=== PATIENT | male | born 1985 | race Caucasian/White ===

== ENCOUNTER → 2019-09-04 15:47 | Outpatient (POV) | payer OTHER, SELFPAY | PROVIDERS: Visit Provider Dermatology | DX: Z00.00 Encounter for general adult medical examination without abnormal findings (principal) ==

== ENCOUNTER 2025-03-15 20:58 | Emergency (ER) | payer BC, SELFPAY ==
--- OUTSIDE RECORDS SUMMARY | 2025-03-15 21:05 | XMS_ITS | Clinical Summary ---
Author Organization [facility] (Formerly [facility])[3] Address [address] [place] [address] Phone Care Team Providers Care Mid Level Practitioner Name Role Phone Lesia Carnes MD Conditions or Problems Problem Name Problem Code Onset Date Status Entry Date Provider Comment Standard Description Annotate HERNIATED LUMBAR DISC 421690744 (SNOMED CT) 04/06 Active 04/06 Adelina Pham Prolapsed lumbar intervertebral disc LUMBAR RADICULOPATHY 300997524 (SNOMED CT) 03/09 Active 03/09 Emmie Farah MA Lumbar radiculopathy Medications Medication Instructions Start Date Stop Date Generic Name [facility] Provider PERCOCET 5-325 MG TABS Take 1/2 - 1 tablet by mouth every four hours as needed for pain 0 8 oxycodone-acetaminop hen [id number] Chantal Tafoya MA TRAMADOL HCL 50 MG TABS Take 1 tablet by mouth three times a day for pain 0 8 tramadol [id number] Chantal Tafoya MA CYCLOBENZAPRINE HCL 5 MG TABS Take 1 PO q8h prn muscle spasms 0 8 cyclobenzaprine [id number] Chantal Tafoya MA IBUPROFEN 200 MG TABS 04/27 ibuprofen [id number] Chantal Tafoya MA CYCLOBENZAPRINE HCL 5 MG TABS Take 1 PO q8h prn muscle spasms 0 8 cyclobenzaprine [id number] Lesia Carnes MD PERCOCET 5-325 MG TABS Take 1/2 - 1 tablet by mouth every four hours as needed for pain 04/27 oxycodone-acetaminop [facility] [id number] Lesia Carnes MD TRAMADOL HCL 50 MG TABS Take 1 tablet by mouth three times a day for pain 04/27 tramadol [id number] Lesia Carnes MD TRAMADOL HCL 50 MG TABS Take 1 tablet by mouth three times a day 04/06 tramadol [id number] Chantal Zarateulicesjaya HERNANDEZ MEDROL 4 MG TBPK Take as directed, HOLD NSAIDs 04/06 methylprednisolone [id number] Chantal Zarateulicesjaya HERNANDEZ MEDROL 4 MG TBPK Take as directed, HOLD NSAIDs 04/06 methylprednisolone [id number] Nat Saldivar SALES ACTIVITY MANAGER RA VITAMIN C/BIJU HIPS 1000 MG TABS ascorbic acid (vitamin c) [id number] Emmie Farah FL IBUPROFEN 200 MG TABS 03/09 ibuprofen 26393649516 Emmie Farah FL IBUPROFEN 200 MG TABS 04/27 ibuprofen [id number] Emmie Farah FL Medications Administered No information available. Allergies, Adverse Reactions, Alerts Observed no known allergies at Results No information available. Plan of Care Type Date Detail Pending order PT Order Pending order RAMONA x 1 therapeu tic injection & follow up with ordering MD Pending order X-Ray Lumbar AP Lateral / Flexion & Extension Procedures No information available. Vital Signs Date Name Value Unit Description BMI (Body Mass Index) 22.38 kg/m2 Bod y Mass Index (Ratio) Height 72 [in_us] height E&M Weight Measured 165 [lb_av] weight E& M Weight Measured 165 [lb_av] weight E& M BP Diastolic 92 mm[Hg] blood pressu re, diastolic BP Systolic 146 mm[Hg] blood pressur e, systolic Body Temperature 98.2 [degF] temperat ure E&M Heart Rate 81 /min pulse rate Respiratory Rate 16 /min respirat ory rate E&M Immunizations No information available. Advance Directives No information available.
[2025-03-15 21:06] VITALS: BP 129/73; PULSE 86; RESP 18; TEMP 36.4; O2SAT 98; BMI 22.4
--- OUTSIDE RECORDS SUMMARY | 2025-03-15 21:06 | XMS_ITS | Clinical Summary ---
Author Organization [facility] [place] [address] Phone Care Team Providers Care Feather Drying Machine Operator Name Role Phone Unavailable Primary Care Provider Unavailabl e Allergies No known active allergies Medications No known medications Active Problems No known active problems Immunizations Immunization Administration Dates Next Due Tdap 11/22/2013 Surgical History Surgery Date Site/Laterality Comments DENTAL SURGERY wisdom teeth FRACTURE SURGERY right leg ANKLE FRACTURE SURGERY 10/20/2012 Right OPEN REDUCTION INTERNAL FIXATION RIGHT MEDIAL MALLEOLUS ; Surgeon: Shay Blue MD; Location: [facility]; Service: Orthopedics Medical devices from this surgery are in the Medical Devices section. Family History Medical History Relation Name Comments Anesth Problems Neg Hx Social History Tobacco Use Types Packs/Day Years Used Date Smoking Tobacco: Some Days Cigarettes 0.5 3 Comments:chew- occ Alcohol Use Standard Drinks/Week Comments Yes 0 (1 standard drink = 0.6 oz pur e alcohol) weekend Sex and Gender Information Value Date Recorded Sex Assigned at Not on file Legal Sex Male 5:16 AM EDT Gender Identity Not on file Sexual Orientation Not on file Obstetrics History Last Filed Vital Signs Vital Sign Reading Time Taken Comments Blood Pressure 126/71 10/20/2012 3:57 PM EST Pulse 67 10/20/2012 3:57 PM EST Temperature 36.7 C (98.1 F) 10/20/2012 3:41 PM EST Respiratory Rate 20 10/20/2012 3:57 PM EST Oxygen Saturation 100% 10/20/2012 3:57 PM EST Inhaled Oxygen Concentration - - Weight 71.7 kg (158 lb) 10/18/2012 2:45 PM EST Height 182.9 cm (6') 10/18/2012 2:45 PM EST Body Mass Index 21.43 10/18/2012 2:45 PM EST Plan of Treatment Health Maintenance Due Date Last Done Comments Annual Wellness Exam 12/09/1990 Hepatitis B Vaccine (1 of 3 - 19+ 3-dose series) 12/09/2006 DTaP/TDaP/Td (2 - Td or Tdap) 11/22/2023 11/22/2013 COVID-19 Vaccine (1 - 2023-2 5 season) 2024 Influenza Vaccine (Season Ended) 2025 Meningococcal B Vaccine Aged Out No l onger eligible based on patient's age to complete this topic Pneumococcal Vaccine 0-49 Aged Out No longer eligible based on patient's age to complete this topic Medical Devices Implanted Type Area Associate Professor Of Art Device Identifier Shelf Expiration Date Model / Serial / Lot Screw Cannulated Asnis Iii Ss 4 X 44mm - [id number] Implanted:Qty: 2 on 10/20/2012 by Shay Blue MD at [facility] Right: Ankle JACK:[employer] CS [id number] / / Insurance [employer]TER[employer]
[2025-03-15 21:30] VITALS: BP 136/83; PULSE 76; RESP 16; O2SAT 99
--- NOTE | 2025-03-15 21:49 | ED_ITS ---
Discharge Plan Disposition Patient Disposition: Home, Self-Care Condition: Good Referrals Follow up/Referrals: Provider,Referral, MD [Primary Care Provider, Medical] - See instructions Activity Restrictions/Add. Instructions Additional Instructions/Restrictions: You were evaluated in the emergency department today. You had a metallic foreign body removed from your right eye. You still have a residual rust ring, so it is important that you see an eye doctor over the next [address] Buchanan' office is open on Tuesday from 8am-12pm. If you do not follow-up for removal of the rust ring within 24 hours, it can cause chronic scarring in your vision. Please use the antibiotic ointment provided to you 4 times a day for the next 4 days or until directed otherwise by an eye doctor. If you have difficulty getting in or getting it managed there, I recommend seeking ER evaluation, preferably an ER with ophthalmology such as . Take Tylenol and ibuprofen as needed for pain. Return to the emergency department for new or worsening symptoms. Clinical Impressions Clinical Impression: Metal foreign body in eye region, Corneal rust ring of left eye Instructions Patient Instructions: DI for Foreign Body in the Eye Print Language Print Language: Swedish Discharge ED Provider: Sanjuanita Arredondo General Adult HPI General Chief complaint: Eye Problems Stated complaint: A/O 6-20 13:00 metal in left eye Time Seen by Provider: 03/15/25 21:23 Mode of Arrival: Ambulatory Source of Information: Patient Description of Symptoms (Recalled from ER Triage Doc. by RN): Pt states he has metal that in the underside of his left eyeball. Pt states this happened at home today around 1300. Pt states he is not in any severe pain, it just feels slightly uncomfortable and he was not able to get it out on his own at home History of Present Illness HPI narrative: This patient is a 39-year-old male who denies significant past medical history presenting to the emergency department for evaluation with concern for metallic foreign body in his left eye. Patient reports he was working with metal today around 1 PM when he noted he got a piece in his eye. He states that he can see it in the mirror so he tried to remove it at home with a Q-tip but was unable to get it. He denies any other concerns or complaint such as vision changes, significant pain, or other concerns. He is not a contact lens wearer. He notes he is up-to-date on tetanus shot with last 1 being within the last 3 years. Related Data Allergies Allergy/AdvReac Type Severity Reaction Status Date / Time No Known Allergies Allergy Unverified 09/13/17 15:26 [facility] Disclaimer: The information contained in this section may have been updated after the patient was seen, as this information can be updated by other users. Social History Smoking Status: Never smoker alcohol intake: never current occupational status: employed Travel in the last 8 weeks?: None ROS Obtained: Yes All systems reviewed & no additional complaints except as documented Physical Exam General General appearance: alert and in no apparent distress Head Head exam: atraumatic and normocephalic Eye Eye exam: Present PERRL and EOMI; Absent conjunctival injection, periorbital swelling or periorbital tenderness Expanded Eye Exam Both Eyes Image: 2 1. Small metallic foreign body ENT ENT exam: Present normal exam, normal oropharynx, mucous membranes moist and normal external ear exam Neck Neck exam: Present normal inspection, full ROM and trachea midline; Absent tenderness Chest Chest inspection: Present normal inspection and symmetric chest wall rise; Absent tenderness Respiratory Respiratory exam: Present normal lung sounds bilaterally; Absent respiratory distress, wheezes, stridor or accessory muscle use Cardiovascular Cardiovascular exam: Present regular rate and normal rhythm Abdominal Exam Abdominal exam: Present soft; Absent distention, tenderness or guarding Extremities Exam Extremities exam: Present normal inspection, full ROM and normal capillary refill; Absent tenderness or edema Back Exam Back exam: Present normal inspection and full ROM; Absent tenderness Neurological Exam Neurological exam: Present alert, oriented X3, CN II-XII intact and normal gait; Absent motor sensory deficit Psychiatric Psychiatric exam: Present normal affect and normal mood Skin Skin exam: Present warm and dry Medical Decision Making Medical Records Medical records reviewed: Yes I reviewed the patient's medical records. Screening: Per USPSTF and CDC recommendations, given the prevalence of disease in our region, it is our hospital?s policy to screen for HIV and viral Hepatitis for all patients aged 18 and over and those with ongoing risk factors. Sunil Inquiry Pt receiving controlled substance: No Vital Signs: 03/15/25 21:06 03/15/25 21:30 Temperature 97.5 F L Temperature Source Oral Pulse Rate 76 Pulse Rate [Left Radial] 86 Respiratory Rate 18 16 Blood Pressure 136/83 Blood Pressure [Left Arm] 129/73 Blood Pressure Mean [Left Arm] 91 Blood Pressure Source Automatic Cuff Blood Pressure Source [Left Arm] Automatic Cuff Blood Pressure Position [Left Arm] Sitting 02 Sat by Pulse Oximetry 98 99 Oxygen Delivery Method Room Air Room Air Lab Data Lab results reviewed: Yes I reviewed the patient's lab results. Orders (Tests/Meds): ED MEDICATIONS Generic Name Dose Route Start Last Admin Trade Name Matt PRN Reason Stop Dose Admin Eye Irrigation Solution 120 ml 03/15/25 22:04 Eye Wash Irrigation Soln 118ml Bottle OP 03/15/25 22:05 ONCE ONE Fluorescein Sodium 1 mg 03/15/25 22:04 Fluorescein Sodium 1mg Strip OP 03/15/25 22:05 ONCE ONE Neomycin/Polymyxin/Bacitracin 1 gm 03/15/25 22:04 Wepxaicd-Ueain-Msili Ophth Oint 3.5gm Tube OP 03/15/25 22:05 ONCE ONE Tetracaine HCl 0 ml 03/15/25 22:04 Tetracaine 0.5% Opth Ada 15ml OP 03/15/25 22:05 ONCE ONE ORDERS Category Date Time Status HIV Combo Routine Lab 03/15/25 21:12 Ordered Hepatitis C Ab Qual. W/ RFX Routine Lab 03/15/25 21:12 Ordered Medical Decision Narrative: In summary, this patient is a 39-year-old male presenting to the Emergency Department for evaluation of metallic foreign body in the left eye. Differential diagnoses considered include but are not limited to metallic foreign body, corneal abrasion, corneal ulceration, open globe. Ruling out the most morbid conditions drove assessment. On exam, the patient is well-appearing with metallic foreign body noted in the left eye. No pain with extraocular movements, vision is normal, no other concerns or complaints noted. Eye exam is otherwise within normal limits and is reassuring. He is up-to-date on vaccinations including tetanus. After informed consent was obtained, patient consents to attempted removal of the metallic foreign body with a needle. Prior to this, eye was anesthetized with tetracaine and fluorescein staining was performed to rule out globe injury or significant ulceration. Fluorescein staining is reassuring. Procedure: Informed consent was obtained. Patient's eye was anesthetized with topical tetracaine. Metallic foreign body was then removed from the eye with 1 attempt with an 18-gauge needle. Patient tolerated this well with no complication. He did have residual rust ring, which I attempted to remove with an 18-gauge needle as well as with a moist cotton swab, but I was unsuccessful. Ultimately after foreign body removal, I feel the patient is appropriate for discharge home with close ophthalmology follow-up. He was given antibiotic ointment and instructions for doing so. He was given very strict return precautions. He was discharged after all questions were answered. Critical Care Critical Care Time Critical Care Time: No
[2025-03-15] MEDS: EYE WASH IRRIGATION SOLN 118ML BOTTLE 120 ML OP (22:19)
[2025-03-15] MEDS: TETRACAINE 0.5% OPTH SOL 15ML OP (22:19)
[2025-03-15] MEDS: NEOMYCIN-BACIT-POLYM OPHTH OINT 3.5GM TUBE 1 GM OP (22:20)
[2025-03-15] MEDS: FLUORESCEIN SODIUM 1MG STRIP 1 MG OP (22:20)
[2025-03-15 22:23] VITALS: BP 129/83; PULSE 69; RESP 18; TEMP 36.7; O2SAT 96
== END 2025-03-15 22:23 | disposition home or self-care (01) ==
PROVIDERS: Emergency Provider Emergency Medicine
DX: T15.92XA Foreign body on external eye, part unspecified, left eye, initial encounter (principal); H16.022 Ring corneal ulcer, left eye; W44.E0XA Non-magnetic metal object unspecified, entering into or through a natural orifice, initial encounter
CPT/HCPCS: 65220; 99284

== ENCOUNTER 2025-09-24 18:20 | Emergency (ER) | payer BC, SELFPAY ==
[2025-09-24 18:42] VITALS: BP 138/81; PULSE 74; RESP 16; TEMP 36.5; O2SAT 98; BMI 21.9
--- OUTSIDE RECORDS SUMMARY | 2025-09-24 18:55 | XMS_ITS | Continuity of Care Document ---
Author Organization [facility] [place] [address] [place] [address] Assessment No assessment recorded. Plan of Treatment Reminders Order Date Submit Date Provider Last Modified By Organization Details Last Modified Time Details Appointments None record ed. Lab None record ed. Referral None record ed. Procedures None record ed. Surgeries None record ed. Imaging None record ed. Medication Orders None record ed. Patient TargetsNo targets recorded. Patient InstructionsNo instructions recorded. Reason for Referral None Reported. Results Created Date Observation Date Name Description Value Unit Range Abnormal Flag Note LastModifiedBy Organization Detail LastModifiedTime 07/08/2007/09/2025 CBC WITH DIFFE RENTI AL/PL ATELE T WBC 4.8 x10e3 /uL 3.4-10 .8 normal Not Available [facility] ([facility]) [address] [place], [address], 07/09/2025 08:26:20 07/08/2007/09/2025 CBC WITH DIFFE RENTI AL/PL ATELE T RBC 5.23 x10e6 /uL 4.14-5 .80 normal Not Available [facility] ([facility]) [address] [place], [address], 07/09/2025 08:26:20 07/08/20 25 07/09/2025 CBC WITH DIFFE RENTI AL/PL ATELE T hemoglobin 16.0 g/dL 13.0-1 7.7 normal Not Available [facility] ([facility]) [address] [place], [address], 07/09/2025 08:26:20 07/08/20 25 07/09/2025 CBC WITH DIFFE RENTI AL/PL ATELE T hematocrit 48.4 % 37.5-5 1.0 normal Not Available [facility] ([facility]) [address] [facility], [place], [address], 07/09/2025 08:26:20 07/08/2007/09/2025 CBC WITH DIFFE RENTI AL/PL ATELE T MCV 93 fL 79-97 normal Not Available [facility] ([facility]) [address] [facility], [place], [address], 07/09/2025 08:26:20 07/08/2007/09/2025 CBC WITH DIFFE RENTI AL/PL ATELE T MCH 30.6 pg 26.6-3 3.0 normal Not Available [facility] ([facility]) [address] [facility], [place], [address], 07/09/2025 08:26:20 07/08/2007/09/2025 CBC WITH DIFFE RENTI AL/PL ATELE T MCHC 33.1 g/dL 31.5-3 5.7 normal Not Available [facility] ([facility]) [address] [facility], [place], [address], 07/09/2025 08:26:20 07/08/2007/09/2025 CBC WITH DIFFE RENTI AL/PL ATELE T RDW 12.7 % 11.6-1 5.4 Not Available [facility] ([facility]) [address] [place], [address], 07/09/2025 08:26:20 07/08/2007/09/2025 CBC WITH DIFFE RENTI AL/PL ATELE T platelets 234 x10e3 /uL 150-45 0 normal Not Available [facility] ([facility]) [address] [place], [address], 07/09/2025 08:26:20 07/08/20 25 07/09/2025 CBC WITH DIFFE RENTI AL/PL ATELE T neutrophils 58 % not estab. normal Not Available [facility] ([facility]) [address] [facility], [place], [address], 07/09/2025 08:26:20 07/08/20 25 07/09/2025 CBC WITH DIFFE RENTI AL/PL ATELE T lymphs 31 % not estab. normal Not Available [facility] ([facility]) [address] [facility], [place], [address], 07/09/2025 08:26:20 07/08/2007/09/2025 CBC WITH DIFFE RENTI AL/PL ATELE T monocytes 7 % not estab. normal Not Available [facility] ([facility]) [address] [facility], [place], [address], 07/09/2025 08:26:20 07/08/20 25 07/09/2025 CBC WITH DIFFE RENTI AL/PL ATELE T eos 3 % not estab. normal Not Available [facility] ([facility]) [address] [facility], [place], [address], 07/09/2025 08:26:20 07/08/20 25 07/09/2025 CBC WITH DIFFE RENTI AL/PL ATELE T basos 1 % not estab. normal Not Available [facility] ([facility]) [address] [facility], [place], [address], 07/09/2025 08:26:20 07/08/2007/09/2025 CBC WITH DIFFE RENTI AL/PL ATELE T immature cells HELP DESK INTERNSHIP Not Available [facility] ([facility]) [address] [facility], [place], [address], 07/09/2025 08:26:20 07/08/20 25 07/09/2025 CBC WITH DIFFE RENTI AL/PL ATELE T neutrophils (absolute) 2.8 x10e3 /uL 1.4-7. 0 normal Not Available [facility] ([facility]) [address] [facility], [place], [address], 07/09/2025 08:26:20 07/08/2007/09/2025 CBC WITH DIFFE RENTI AL/PL ATELE T lymphs (absolute) 1.5 x10e3 /uL 0.7-3. 1 normal Not Available [facility] ([facility]) [address] [facility], [place], [address], 07/09/2025 08:26:20 07/08/2007/09/2025 CBC WITH DIFFE RENTI AL/PL ATELE T monocytes(ab solute) 0.3 x10e3 /uL 0.1-0. 9 normal Not Available [facility] ([facility]) [address] [facility], [place], [address], 07/09/2025 08:26:20 07/08/2007/09/2025 CBC WITH DIFFE RENTI AL/PL ATELE T eos (absolute) 0.2 x10e3 /uL 0.0-0. 4 normal Not Available [facility] ([facility]) [address] [facility], [place], [address], 07/09/2025 08:26:20 07/08/2007/09/2025 CBC WITH DIFFE RENTI AL/PL ATELE T baso (absolute) 0.1 x10e3 /uL 0.0-0. 2 normal Not Available [facility] ([facility]) [address] [place], [address], 07/09/2025 08:26:20 07/08/2007/09/2025 CBC WITH DIFFE RENTI AL/PL ATELE T immature granulocytes 0 % not estab. Not Available [facility] ([facility]) [address] [facility], [place], [address], 07/09/2025 08:26:20 07/08/20 25 07/09/2025 CBC WITH DIFFE RENTI AL/PL ATELE T immature grans (abs) 0.0 x10e3 /uL 0.0-0. 1 Not Available [facility] ([facility]) [address] [facility], [place], [address], 07/09/2025 08:26:20 07/08/20 25 07/09/2025 CBC WITH DIFFE RENTI AL/PL ATELE T NRBC HEL[employer] Not Available [facility] ([facility]) [address] [facility], [place], [address], 07/09/2025 08:26:20 07/08/2007/09/2025 CBC WITH DIFFE RENTI AL/PL ATELE T hematology comments: HEL[employer] Not Available [facility] ([facility]) [address] [facility], [place], [address], 07/09/2025 08:26:20 07/08/2007/09/2025 COMP. METAB OLIC PANEL (14) glucose 87 mg/dL 70-99 normal Not Available [facility] ([facility]) [address] [facility], [place], [address], 07/09/2025 08:26:21 07/08/20 25 07/09/2025 COMP. METAB OLIC PANEL (14) BUN 18 mg/dL 6-20 normal Not Available [facility] ([facility]) [address] [facility], [place], [address], 07/09/2025 08:26:21 07/08/20 25 07/09/2025 COMP. METAB OLIC PANEL (14) creatinine 1.02 mg/dL 0.76-1 .27 normal Not Available [facility] ([facility]) [address] [place], [address], 07/09/2025 08:26:21 07/08/20 25 07/09/2025 COMP. METAB OLIC PANEL (14) eGFR 97 mL/mi n/1.7 3 >59 normal Not Available [facility] ([facility]) [address] [facility] [place], [address], 07/09/2025 08:26:21 07/08/20 25 07/09/2025 COMP. METAB OLIC PANEL (14) BUN/creatini ne ratio 18 9-20 normal Not Available [facility] ([facility]) [address] [facility] [place], [address], 07/09/2025 08:26:21 07/08/20 25 07/09/2025 COMP. METAB OLIC PANEL (14) sodium 141 mmol/ L 134-14 4 normal Not Available [facility] ([facility]) [address] [facility] [place], [address], 07/09/2025 08:26:21 07/08/20 25 07/09/2025 COMP. METAB OLIC PANEL (14) potassium 5.3 mmol/ L 3.5-5. 2 above high normal Not Available [facility] ([facility]) [address] [facility] [place], [address], 07/09/2025 08:26:21 07/08/20 25 07/09/2025 COMP. METAB OLIC PANEL (14) chloride 105 mmol/ L 96-106 normal Not Available [facility] ([facility]) [address] [facility] [place] [place], [address], 07/09/2025 08:26:21 07/08/20 25 07/09/2025 COMP. METAB OLIC PANEL (14) carbon dioxide, total 23 mmol/ L 20-29 normal Not Available [facility] ([facility]) [address] [facility] [place], [address], 07/09/2025 08:26:21 07/08/20 25 07/09/2025 COMP. METAB OLIC PANEL (14) calcium 9.5 mg/dL 8.7-10 .2 normal Not Available [facility] ([facility]) [address] [place], [address], 07/09/2025 08:26:21 07/08/2007/09/2025 COMP. METAB OLIC PANEL (14) protein, total 6.9 g/dL 6.0-8. 5 normal Not Available [facility] ([facility]) [address] [facility], [place], [address], 07/09/2025 08:26:21 07/08/2007/09/2025 COMP. METAB OLIC PANEL (14) albumin 4.7 g/dL 4.1-5. 1 normal Not Available [facility] ([facility]) [address] [facility] [place], [address], 07/09/2025 08:26:21 07/08/20 25 07/09/2025 COMP. METAB OLIC PANEL (14) globulin, total 2.2 g/dL 1.5-4. 5 Not Available [facility] ([facility]) [address] [facility] [place], [address], 07/09/2025 08:26:21 07/08/2007/09/2025 COMP. METAB OLIC PANEL (14) bilirubin, total 0.6 mg/dL 0.0-1. 2 normal Not Available [facility] ([facility]) [address] [facility], [place], [address], 07/09/2025 08:26:21 07/08/2007/09/2025 COMP. METAB OLIC PANEL (14) alkaline phosphatase 81 IU/L 47-123 normal Not Available [facility] ([facility]) [address] [facility] [place], [address], 07/09/2025 08:26:21 07/08/20 25 07/09/2025 COMP. METAB OLIC PANEL (14) AST (SGOT) 17 IU/L 0-40 normal Not Available [facility] ([facility]) [address] [facility], [place], [address], 07/09/2025 08:26:21 07/08/20 25 07/09/2025 COMP. METAB OLIC PANEL (14) ALT (SGPT) 19 IU/L 0-44 normal Not Available [facility] ([facility]) [address] [facility] [place], [address], 07/09/2025 08:26:21 07/08/20 25 07/09/2025 LIPID PANEL cholesterol, total 191 mg/dL 100-19 9 normal Not Available [facility] ([facility]) [address] [place], [address], 07/09/2025 08:26:21 07/08/20 25 07/09/2025 LIPID PANEL triglyceride s 59 mg/dL 0-149 normal Not Available [facility] ([facility]) [address] [place], [address], 07/09/2025 08:26:21 07/08/20 25 07/09/2025 LIPID PANEL HDL cholesterol 72 mg/dL >39 normal Not Available [facility] ([facility]) [address] [place], [address], 07/09/2025 08:26:21 07/08/20 25 07/09/2025 LIPID PANEL VLDL cholesterol ainsley 11 mg/dL 5-40 Not Available [facility] ([facility]) [address] [place], [address], 07/09/2025 08:26:21 07/08/20 25 07/09/2025 LIPID PANEL LDL chol calc ([facility]) 108 mg/dL 0-99 above high normal Not Available [facility] ([facility]) [address] [place], [address], 07/09/2025 08:26:21 07/08/20 25 07/09/2025 LIPID PANEL LDL calc comment: [employer] Not Available [facility] ([facility]) [address] [place], [address], 07/09/2025 08:26:21 07/15/20 25 07/16/2025 COMP. METAB OLIC PANEL (14) glucose 86 mg/dL 70-99 normal Not Available [facility] ([facility]) [address] [facility] [place], [address], 07/16/2025 10:12:47 07/15/20 25 07/16/2025 COMP. METAB OLIC PANEL (14) BUN 17 mg/dL 6-20 normal Not Available [facility] ([facility]) [address] [facility], [place], [address], 07/16/2025 10:12:47 07/15/20 25 07/16/2025 COMP. METAB OLIC PANEL (14) creatinine 0.98 mg/dL 0.76-1 .27 normal Not Available [facility] ([facility]) [address] [place], [address], 07/16/2025 10:12:47 07/15/20 25 07/16/2025 COMP. METAB OLIC PANEL (14) eGFR 102 mL/mi n/1.7 3 >59 normal Not Available [facility] ([facility]) [address] [facility] [place], [address], 07/16/2025 10:12:47 07/15/20 25 07/16/2025 COMP. METAB OLIC PANEL (14) BUN/creatini ne ratio 17 9-20 normal Not Available [facility] ([facility]) [address] [place], [address], 07/16/2025 10:12:47 07/15/20 25 07/16/2025 COMP. METAB OLIC PANEL (14) sodium 140 mmol/ L 134-14 4 normal Not Available [facility] ([facility]) [address] [place], [address], 07/16/2025 10:12:47 07/15/20 07/16/2025 COMP. METAB OLIC PANEL (14) potassium 5.1 mmol/ L 3.5-5. 2 normal Not Available [facility] ([facility]) [address] [place], [address], 07/16/2025 10:12:47 07/15/20 25 07/16/2025 COMP. METAB OLIC PANEL (14) chloride 102 mmol/ L 96-106 normal Not Available [facility] ([facility]) [address] [facility] [place], [address], 07/16/2025 10:12:47 07/15/20 25 07/16/2025 COMP. METAB OLIC PANEL (14) carbon dioxide, total 25 mmol/ L 20-29 normal Not Available [facility] ([facility]) [address] [facility] [place], [address], 07/16/2025 10:12:47 07/15/20 25 07/16/2025 COMP. METAB OLIC PANEL (14) calcium 9.4 mg/dL 8.7-10 .2 normal Not Available [facility] ([facility]) [address] [place], [address], 07/16/2025 10:12:47 07/15/20 25 07/16/2025 COMP. METAB OLIC PANEL (14) protein, total 6.6 g/dL 6.0-8. 5 normal Not Available [facility] ([facility]) [address] [place], [address], 07/16/2025 10:12:47 07/15/20 25 07/16/2025 COMP. METAB OLIC PANEL (14) albumin 4.7 g/dL 4.1-5. 1 normal Not Available [facility] ([facility]) [address] [place], [address], 07/16/2025 10:12:47 07/15/20 25 07/16/2025 COMP. METAB OLIC PANEL (14) globulin, total 1.9 g/dL 1.5-4. 5 Not Available [facility] ([facility]) [address] [place], [address], 07/16/2025 10:12:47 07/15/20 25 07/16/2025 COMP. METAB OLIC PANEL (14) bilirubin, total 0.5 mg/dL 0.0-1. 2 normal Not Available [facility] ([facility]) [address] [place], [address], 07/16/2025 10:12:47 07/15/20 25 07/16/2025 COMP. METAB OLIC PANEL (14) alkaline phosphatase 82 IU/L 47-123 normal Not Available [facility] ([facility]) [address] [place], [address], 07/16/2025 10:12:47 07/15/20 25 07/16/2025 COMP. METAB OLIC PANEL (14) AST (SGOT) 16 IU/L 0-40 normal Not Available [facility] ([facility]) [address] [place], [address], 07/16/2025 10:12:47 07/15/20 25 07/16/2025 COMP. METAB OLIC PANEL (14) ALT (SGPT) 17 IU/L 0-44 normal Not Available [facility] ([facility]) [address] [place], [address], 07/16/2025 10:12:47 Result Notes None recorded. Problems Name Problem SNOMED Code Status Onset Date Resolution Date Notes Provider Name and Address Organization Details Recorded Time Prolapsed lumbar intervertebra l disc [id number] Active 2023 Leanne Chadwick PA-C [address], [place], [address] , [place] - [facility] 11:26:48 Problem Notes None recorded. Procedures Surgical History Date Name Laterality Status Provider Name and Address Organization Details Recorded Time Unlisted px femur/knee completed Jessica Chambers [place] - [facility] 09/02/2020 10:28:48 Imaging Results None recorded. Procedure Notes None recorded. Medical Equipment None Reported. Allergies No known drug allergies Medications Name Sig Start Date Stop Date Status Note LastModified by Organization Details LastModified Time cyclobenzap rine 10 mg tablet TAKE 1 TABLET BY MOUTH THREE TIMES A DAY 04/10 completed Not Available Not Available Not Available amoxicillin 500 mg capsule 04/10 completed Not Available Not Available Not Available sulfamethox azole 800 mg-trimetho prim 160 mg tablet TAKE 1 TABLET BY MOUTH TWICE DAILY FOR 10 DAYS 04/10 completed Not Available Not Available Not Available tramadol 50 mg tablet Take 1 tablet 3 times a day by oral route for 30 days. 07/08 completed Not Available Not Available Not Available cephalexin 500 mg capsule TAKE 1 TABLET BY MOUTH THREE TIMES DAILY FOR 10 DAYS 04/10 completed Not Available Not Available Not Available methylpredn isolone 4 mg tablets in a dose pack TAKE 6 TABLETS ON DAY 1 DIRECTED ON PACKAGE AND DECREASE BY 1 TAB EACH DAY FOR A TOTAL OF 6 DAYS 04/10 completed Not Available Not Available Not Available amoxicillin 875 mg-potassiu m clavulanate 125 mg tablet TAKE 1 TABLET BY MOUTH TWICE A DAY 04/10 completed Not Available Not Available Not Available ciprofloxac in 0.3 %-dexametha sone 0.1 % ear drops,suspe nsion ADMINISTE R 4 DROPS INTO RIGHT EAR TWICE A DAY 04/10 completed Not Available Not Available Not Available Emergen-C take 1 tablet once a day 04/10 completed Not Available Not Available Not Available Vitals None Recorded Social History Question Answer Notes LastModified by Organizat ion Details LastModified Time Tobacco Smoking Status Never Smoker Hannah june [place] - [facility] 08/02/2023 08:21:42 Are You Blind Or Do You Have Difficulty Seeing? No [email or web address] Information not available 08/02/2023 Are You Deaf Or Do You Have Serious Difficulty Hearing? No [email or web address] Information not available 08/02/2023 Live Alone Or With Others? With Others Information not available 09/02/2020 What Was The Date Of Your Most Recent Tobacco Screening? 07/08/2025 [email or web address] Information not available 07/08/2025 How Many Children Do You Have? 3 [email or web address] Information not available 08/02/2023 What Is Your Relationship Status? Information not available 09/02/2020 Has Tobacco Cessation Counseling Been Provided? No [email or web address] Information not available 08/02/2023 Do You Have Difficulty Walking Or Climbing Stairs? No [email or web address] Information not available 08/02/2023 Sex: Male Functional Status Question Answer Note LastModified by Organizat ion Details LastModified Time How many times per week do you consume alcohol? Less than 1 time per week [email or web address] Information not available 08/02/2023 Do you use any illicit or recreational drugs? No [email or web address] Information not available 08/02/2023 Do you or have you ever used any other forms of tobacco or nicotine? No [email or web address] Information not available 08/02/2023 What is your level of alcohol consumption? Occasional [email or web address] Information not available 08/02/2023 Do you or have you ever used smokeless tobacco? Never used smokeless tobacco [email or web address] Information not available 08/02/2023 Are you currently employed? Yes [email or web address] Information not available 08/02/2023 Do you have transportation difficulties? No [email or web address] Information not available 08/02/2023 Are you able to walk independently without assistance or assistive devices? YESWOREST [email or web address] Information not available 08/02/2023 Do you have difficulty doing errands alone? No [email or web address] Information not available 08/02/2023 Are you able to care for yourself independently? Yes [email or web address] Information not available 08/02/2023 What is your occupation? [email or web address] Information not available 09/02/2020 Do you have difficulty dressing, bathing, grooming, or toileting? No [email or web address] Information not available 08/02/2023 Mental Status Question Answer Note LastModified by Organization D etails LastModified Time Do you have difficulty concentrating, remembering or making decisions? No [email or web address] Information no t available 08/02/2023 Family History Relationship Description Onset Age of this Age Resolved Age Notes LastModified by Organization Details LastModified Time Father No current problems or disability Not available 09/02 10:27:56 Mother No current problems or disability Not available 09/02 10:27:56 Medical History Condition Response Pancreatitis N Coronary Artery Disease N Gout N Other N Atrial Fibrillation N congenital heart disease N Blood Diseases N Kidney Stones N Hyperthyroidism N Rheumatoid arthritis N Blood Transfusion N Erectile Dysfunction N amputation N Colonoscopy N Skin Lesions N COPD N Depression N Pneumonia N Incontinence N Murmur N Edema N Alzheimer's Disease N Migraine Headaches N Tobacco Abuse N Anxiety Disorder N Muscle, Joint, or Bone Problems N Hemorrhoids N Obesity N Vision or Eye Problems N Restless Leg Syndrome N Arthritis N Polyps N Infertility N Mental Disorder N Carpal Tunnel N Acid Reflux (GERD) N Cancer N Varicosities N Stroke N Tendonitis N Crohn's Disease N Hypercholesterolemia N Skin Cancer N Headaches N Fibromyalgia N Irritable Bowel Syndrome N Anal Fissure N Kidney Disease N Heart Problems N Ear or Hearing Problems N Hospitalizations N Gallstones N Kidney or Bladder Problems N Goiter N Acne N Skin Problems N Eating Disorder N Trinidad's Esophagus N Hypertriglyceridemia N MRSA exposure N Constipation N Embolism N Vitamin B12 Deficiency N Deviated Septum N Tuberculosis N AIDS/HIV N Myocardial Infarction N Asthma N Mitral Valve Disorders N Vertigo N Hepatitis N Thyroid Cancer N Neuropathy N Pulmonary Embolism N History of DVT N Herniated Disc N Chronic Ear Infections N Chicken Pox N Autism Spectrum Disorder (ASD) N Von Willebrands Disease N Thrombophilias N Breast Cancer N Hernia N Plantar Fasciitis N Hospital Admission Other Than N Lung Disease N Hypothyroidism N Defects or Inherited Disease N Developmental or Behavioral Disorders N Breast Problem N Difficulty Swallowing N Ovarian Cyst N Anesthesia Complications N Testosterone Deficiency N Meniere's disease N Head Injury/Concussion N Interstitial Cystitis N Congenital Anomalies N Hypoglycemia N Blood clot N Vitamin D Deficiency N Cellulitis N Endometriosis N Bladder or Kidney Problems N Fracture N Colorectal Cancer N Liver Disease N Schizophrenia N Panic Disorder N Concussion N Spina Bifida N Allergies/Hayfever N Osteoarthritis N Parkinson's Disease N Disc Protrusion N STI N Esophagitis N Angina N Thyroid Problems N GI Problems N ADD/ADHD N Anemia N Multiple Sclerosis N Abnormal PAP N Lumbago N Mental Illness N Psychiatric Illness N Ovarian Cancer N Diabetes N Bedwetting N Degenerative Disc Disease N Seizures/Epilepsy N Congestive Heart Failure (CHF) N Syncope N Insomnia N Hyperlipidemia N Eczema N Abuse/Domestic Violence N Attention Deficient Disorder N Dementia N Diverticulitis N Ulcerative colitis N Cerebrovascular Disease N Depression N Guillain-Drury N Sleep Apnea N Aneurysm N Bronchitis N Heart Disease N Suicidal Ideation N Pre-Eclampsia N Hypertension N Osteoporosis N Immunizations Vaccine Type Date Status Note Provider Nam e and Address Organization Details Recorded Time influenza, unspecified formulation 5 completed Hannah Jose null, [place] - [facility] 07/08/2025 08:23:48 Influenza, split virus, quadrivalent, preservative 3 completed Hannah Jose null, [place] - [facility] 08/02/2023 09:29:11 COVID-19, mRNA, LNP-S, PF, 100 mcg/0.5mL dose or 50 mcg/0.25mL dose 1 completed Earlene Pierre RN [address], [address], [place] - [facility] 11/12/2020 09:20:38 Influenza, MDCK, quadrivalent, PF 0 completed Hannah Jose null, [place] - [facility] 08/02/2023 08:16:52 Influenza, MDCK, quadrivalent, PF 2 completed [place] [facility] 08/02/2023 08:16:53 MMR 9 completed Hannah [place] null[place] [facility] 08/02/2023 08:16:53 COVID-19, mRNA, LNP-S, PF, 100 mcg/0.5mL dose or 50 mcg/0.25mL dose 1 completed Hannah Jose null, [place] - [facility] 08/02/2023 08:16:53 COVID-19, mRNA, LNP-S, PF, 100 mcg/0.5mL dose or 50 mcg/0.25mL dose 1 completed [place] null[place] [facility] 08/02/2023 08:16:53 Tdap 4 completed [place] [facility] 08/02/2023 08:16:53 Td (adult), 2 Lf tetanus toxoid, preservative free, adsorbed 3 completed Hannah Jose null, [place] - [facility] 08/02/2023 08:16:53 Hep B, adolescent or pediatric 2 completed Hannah Jose null, [place] - [facility] 08/02/2023 08:16:53 Hep B, adolescent or pediatric 9 completed Hannah Jose null, [place] - [facility] 08/02/2023 08:16:53 Hep B, adolescent or pediatric 0 completed Hannah Jose null, [place] - [facility] 08/02/2023 08:16:53 Hep B, adolescent or pediatric 0 completed Hannah Jose null, [place] - [facility] 08/02/2023 08:16:53 Influenza, split virus, quadrivalent, PF 1 completed Hannah Jose null, [place] - [facility] 08/02/2023 08:16:53 Past Encounters Encounter ID Performer Location Encounter Start Date Encounter Closed Date Diagnosis/Indication Diagnosis SNOMED-CT Code Diagnosis ICD10 Code Diagnosis IMO Codes Diagnosis Note [id number] [facility] [address] [address] 07/08/2025 08:14:00 07/08/2025 08:53:50 Body mass index 20-24 - normal 825999225 Z68.23 [id number] Hyperlipid emia screening 361950490 Z13.220 [id number] checking today Endocrine/ metabolic screening 438853107 Z13.29 [id number] checking today General ex amination of patient 503785595 Z00.00 [id number] Leanne Chadwick PA-C [place] [address] [address] 07/15/2025 09:17:49 07/15/2025 10:12:40 Health Concerns Section Related Observation LastModified by Organization Detai ls LastModified Time None Recorded Concern Status LastModified by Organization Details LastModified Time None Recorded Payers Encounter Date Sequence Insurance Name Policy Number Policy Elias Covered Member ID Elias Member ID Guarantor Name 07/15/2025 1 [employer] [id number] Mor Uribe [id number] Mor Uribe
--- OUTSIDE RECORDS SUMMARY | 2025-09-24 18:56 | XMS_ITS | Data Portability ---
Author Organization [facility] Address [address] [place] [address] Assessment Encounter Date Assessment Date Assessment LastModified by Organization Details LastModified Time 11/13/2020 11/13/2020 Service was provided using telemedicine. The patient verbally consents to virtual services and the consent is documented in the medical record prior to using the service. Patient is located at their place of residence Provider is located at medical clinic. Names and roles of all persons participating in telemedicine services include:Juanita Garcia APRN, Fay Benitez LPN Not available 11/13/2020 10:35:32 Plan of Treatment Reminders Order Date Submit Date Provider Last Modified By Organization Details Last Modified Time Details Appointments None recorded. Lab lipid panel, serum 2024 025 JAKE [facility], [address], [address] [address], [place], [address], 08:26:21 CBC w/ auto diff 2024 025 JAKE [facility], [address], [place] [address], [place], [address], 08:26:20 CMP, serum or plasma 2024 025 JAKE [facility], [address], [address] [address], [place], [address], 08:26:21 CBC w/ auto diff 2023 024 JAKE [facility], [address], [address] [address], [place], [address], 4 08:26:29 lipid panel, serum 2023 024 JAKE [facility], [address], [address] [address], [place], [address], 4 08:26:31 CMP, serum or plasma 2023 024 JAKE [facility], [address], [place] [address], [place], [address], 4 08:26:30 CBC w/ auto diff 2022 023 JAKE [facility], [address], [place] [address], [place], [address], 3 08:22:32 lipid panel, serum 2022 023 JAKE [facility], [address], [place] [address], [place], [address], 3 08:22:33 CMP, serum or plasma 2022 023 JAKE [facility], [address], [place] [address], [place], [address], 3 08:22:32 HbA1c (hemoglobin A1c), blood 2022 023 JAKE [facility], [address], [place] [address], [place], [address], 3 08:22:33 rapid SARS CoV + SARS CoV 2 Ag, QL IA, respiratory specimen 2020 021 [facility], [address] [place] [address] , [place], [address], 1 15:49:20 Referral None recorded. Procedures None recorded. Surgeries None recorded. Imaging electrocard iogram 2023 024 [email or web address] 6 [facility], [address] [place] [address], [place], [address], 13:34:17 Medication Orders None recorded. Patient TargetsNo targets recorded. Patient Instructions Encounter Date Encounter Id Patient Instructions Last Modified By Organization Details Last Modified Time 11/13/2020 [id number] Plan for next steps: negative results. If you have any questions or concerns call [email or web address] [email or web address] Not available 11/13/2020 15:14:21 Due to the natur e of telemedicine the ability to do a physical assessment was limited to what can be accomplished by patient directed video conferencing. Those limits are understood by the patient and myself. Impression is based on history, available information and physical findings accomplished with video assistance. Chronic disease/problem list/medication list reviewed and updated where indicated. Discussed diagnosis, plan including risks, benefits and options of treatment. PMH, FHx, SHx, Surgical Hx and preventive care review were addressed as documented today as part of this visit. Medication list was reviewed and adjusted as indicated. Medication requiring a refill was addressed. Risk and benefits of any new medications were discussed and all questions answered. Advised to call for new, worsening or persistent symptoms. Level of patient risk was of low complexity due to the documented nature of presentation, the information assessment required and the nature of the development of an evaluation and treatment plan as documented. Not available 11/13/2020 10:35:38 08/02/2023 [id number] Men's Guide to Preventive Health Care edeatley Not available 08/02/2023 08:31:41 skin check* [email or web address] Not available 03/2023 09:25:46 Call with change s Discussed importance of diet and exercise Routine health maintenance reviewed Meds reviewed with patient today, side effects discussed and patient voices understanding of this Chronic conditions are stable Continue current medications as prescribed edeatley Not available 08/02/2023 08:27:39 04/10/2024 [id number] Men's Guide to Preventive Health Care edeatley Not available 04/10/2024 11:26:09 Call with change s RTC or ED if symptoms change or worsen Keep next interval checkup Cont. chronic meds as prescribed Chronic conditions are stable Discussed natural and expected course of this diagnosis and need to alert me if symptoms do not follow expected course or if any worsens edeatley Not available 04/10/2024 11:39:09 07/08/2025 [id number] Call with change s Discussed importance of diet and exercise Routine health maintenance reviewed Meds reviewed with patient today, side effects discussed and patient voices understanding of this Chronic conditions are stable Continue current medications as prescribed edeatley Not available 07/08/2025 08:30:42 Reason for Referral None Reported. Results Created Date Observation Date Name Description Value Unit Range Abnormal Flag Note LastModifiedBy Organization Detail LastModifiedTime 11/13/19 21 11/13/2020 rapid SARS CoV + SARS CoV 2 Ag, QL IA, respi rator y speci men SARS CoV antigen Negati ve Not Available [address] , [place], [address], 11/13/2020 10:35:24 08/02/20 23 08/03/2023 CBC WITH DIFFE RENTI AL/PL ATELE T WBC 4.8 x10e3 /uL 3.4-10 .8 Not Available [facility] ([facility]) [address] [place], [address], 08/03/2023 08:22:31 08/02/20 23 08/03/2023 CBC WITH DIFFE RENTI AL/PL ATELE T RBC 5.20 x10e6 /uL 4.14-5 .80 Not Available [facility] ([facility]) [address] [place], [address], 08/03/2023 08:22:31 08/02/20 23 08/03/2023 CBC WITH DIFFE RENTI AL/PL ATELE T hemoglobin 15.9 g/dL 13.0-1 7.7 Not Available [facility] ([facility]) [address] [place], [address], 08/03/2023 08:22:31 08/02/20 23 08/03/2023 CBC WITH DIFFE RENTI AL/PL ATELE T hematocrit 46.9 % 37.5-5 1.0 Not Available [facility] ([facility]) [address] [facility], [place], [address], 08/03/2023 08:22:31 08/02/20 23 08/03/2023 CBC WITH DIFFE RENTI AL/PL ATELE T MCV 90 fL 79-97 Not Available [facility] ([facility]) [address] [facility], [place], [address], 08/03/2023 08:22:31 08/02/20 23 08/03/2023 CBC WITH DIFFE RENTI AL/PL ATELE T MCH 30.6 pg 26.6-3 3.0 Not Available [facility] ([facility]) [address] [facility], [place], [address], 08/03/2023 08:22:31 08/02/20 23 08/03/2023 CBC WITH DIFFE RENTI AL/PL ATELE T MCHC 33.9 g/dL 31.5-3 5.7 Not Available [facility] ([facility]) [address] [facility], [place], [address], 08/03/2023 08:22:31 08/02/20 23 08/03/2023 CBC WITH DIFFE RENTI AL/PL ATELE T RDW 12.2 % 11.6-1 5.4 Not Available [facility] ([facility]) [address] [facility], [place], [address], 08/03/2023 08:22:31 08/02/20 23 08/03/2023 CBC WITH DIFFE RENTI AL/PL ATELE T platelets 283 x10e3 /uL 150-45 0 Not Available [facility] ([facility]) [address] [facility], [place], [address], 08/03/2023 08:22:31 08/02/20 23 08/03/2023 CBC WITH DIFFE RENTI AL/PL ATELE T neutrophils 59 % not estab. Not Available [facility] ([facility]) [address] [facility], [place], [address], 08/03/2023 08:22:31 08/02/20 23 08/03/2023 CBC WITH DIFFE RENTI AL/PL ATELE T lymphs 30 % not estab. Not Available [facility] ([facility]) [address] [facility], [place], [address], 08/03/2023 08:22:31 08/02/20 23 08/03/2023 CBC WITH DIFFE RENTI AL/PL ATELE T monocytes 6 % not estab. Not Available [facility] ([facility]) [address] [facility], [place], [address], 08/03/2023 08:22:31 08/02/20 23 08/03/2023 CBC WITH DIFFE RENTI AL/PL ATELE T eos 3 % not estab. Not Available [facility] ([facility]) [address] [facility], [place], [address], 08/03/2023 08:22:31 08/02/20 23 08/03/2023 CBC WITH DIFFE RENTI AL/PL ATELE T basos 2 % not estab. Not Available [facility] ([facility]) [address] [facility], [place], [address], 08/03/2023 08:22:31 08/02/20 23 08/03/2023 CBC WITH DIFFE RENTI AL/PL ATELE T immature cells DYE RANGE TENDER Not Available [facility] ([facility]) [address] [facility], [place], [address], 08/03/2023 08:22:31 08/02/20 23 08/03/2023 CBC WITH DIFFE RENTI AL/PL ATELE T neutrophils (absolute) 2.9 x10e3 /uL 1.4-7. 0 Not Available [facility] ([facility]) [address] [facility], [place], [address], 08/03/2023 08:22:31 08/02/20 23 08/03/2023 CBC WITH DIFFE RENTI AL/PL ATELE T lymphs (absolute) 1.4 x10e3 /uL 0.7-3. 1 Not Available [facility] ([facility]) [address] [facility], [place], [address], 08/03/2023 08:22:31 08/02/20 23 08/03/2023 CBC WITH DIFFE RENTI AL/PL ATELE T monocytes(ab solute) 0.3 x10e3 /uL 0.1-0. 9 Not Available [facility] ([facility]) [address] [facility], [place], [address], 08/03/2023 08:22:31 08/02/20 23 08/03/2023 CBC WITH DIFFE RENTI AL/PL ATELE T eos (absolute) 0.2 x10e3 /uL 0.0-0. 4 Not Available [facility] ([facility]) [address] [facility], [place], [address], 08/03/2023 08:22:31 08/02/20 23 08/03/2023 CBC WITH DIFFE RENTI AL/PL ATELE T baso (absolute) 0.1 x10e3 /uL 0.0-0. 2 Not Available [facility] ([facility]) [address] [facility], [place], [address], 08/03/2023 08:22:31 08/02/20 23 08/03/2023 CBC WITH DIFFE RENTI AL/PL ATELE T immature granulocytes 0 % not estab. Not Available [facility] ([facility]) [address] [facility], [place], [address], 08/03/2023 08:22:31 08/02/20 23 08/03/2023 CBC WITH DIFFE RENTI AL/PL ATELE T immature grans (abs) 0.0 x10e3 /uL 0.0-0. 1 Not Available [facility] ([facility]) [address], [place], [address], 08/03/2023 08:22:31 08/02/20 23 08/03/2023 CBC WITH DIFFE RENTI AL/PL ATELE T NRBC DYE RANGE TENDER Not Available [facility] ([facility]) [address], [place], [address], 08/03/2023 08:22:31 08/02/20 23 08/03/2023 CBC WITH DIFFE RENTI AL/PL ATELE T hematology comments: DYE RANGE TENDER Not Available [facility] ([facility]) [address], [place], [address], 08/03/2023 08:22:31 08/02/20 23 08/03/2023 COMP. METAB OLIC PANEL (14) glucose 95 mg/dL 70-99 Not Available [facility] ([facility]) [address], [place], [address], 08/03/2023 08:22:32 08/02/20 23 08/03/2023 COMP. METAB OLIC PANEL (14) BUN 12 mg/dL 6-20 Not Available [facility] ([facility]) [address], [place], [address], 08/03/2023 08:22:32 08/02/20 23 08/03/2023 COMP. METAB OLIC PANEL (14) creatinine 0.99 mg/dL 0.76-1 .27 Not Available [facility] ([facility]) [address], [place], [address], 08/03/2023 08:22:32 08/02/20 23 08/03/2023 COMP. METAB OLIC PANEL (14) eGFR 102 mL/mi n/1.7 3 >59 Not Available [facility] ([facility]) [address], [place], [address], 08/03/2023 08:22:32 08/02/20 23 08/03/2023 COMP. METAB OLIC PANEL (14) BUN/creatini ne ratio 12 9-20 Not Available [facility] ([facility]) [address] [facility] [place], [address], 08/03/2023 08:22:32 08/02/20 23 08/03/2023 COMP. METAB OLIC PANEL (14) sodium 145 mmol/ L 134-14 4 above high normal Not Available [facility] ([facility]) [address] [facility] [place], [address], 08/03/2023 08:22:32 08/02/20 23 08/03/2023 COMP. METAB OLIC PANEL (14) potassium 5.0 mmol/ L 3.5-5. 2 Not Available [facility] ([facility]) [address] [facility] [place], [address], 08/03/2023 08:22:32 08/02/20 23 08/03/2023 COMP. METAB OLIC PANEL (14) chloride 105 mmol/ L 96-106 Not Available [facility] ([facility]) [address] [facility] [place], [address], 08/03/2023 08:22:32 08/02/20 23 08/03/2023 COMP. METAB OLIC PANEL (14) carbon dioxide, total 25 mmol/ L 20-29 Not Available [facility] ([facility]) [address] [place], [address], 08/03/2023 08:22:32 08/02/20 23 08/03/2023 COMP. METAB OLIC PANEL (14) calcium 9.6 mg/dL 8.7-10 .2 Not Available [facility] ([facility]) [address] [facility] [place], [address], 08/03/2023 08:22:32 08/02/20 23 08/03/2023 COMP. METAB OLIC PANEL (14) protein, total 6.9 g/dL 6.0-8. 5 Not Available [facility] ([facility]) [address] [place], [address], 08/03/2023 08:22:32 08/02/20 23 08/03/2023 COMP. METAB OLIC PANEL (14) albumin 4.8 g/dL 4.1-5. 1 Not Available [facility] ([facility]) [address] [place], [address], 08/03/2023 08:22:32 08/02/20 23 08/03/2023 COMP. METAB OLIC PANEL (14) globulin, total 2.1 g/dL 1.5-4. 5 Not Available [facility] ([facility]) [address] [place], [address], 08/03/2023 08:22:32 08/02/20 23 08/03/2023 COMP. METAB OLIC PANEL (14) A/G ratio 2.3 1.2-2. 2 above high normal Not Available [facility] ([facility]) [address] [place], [address], 08/03/2023 08:22:32 08/02/20 23 08/03/2023 COMP. METAB OLIC PANEL (14) bilirubin, total 0.3 mg/dL 0.0-1. 2 Not Available [facility] ([facility]) [address] [facility] [place], [address], 08/03/2023 08:22:32 08/02/20 23 08/03/2023 COMP. METAB OLIC PANEL (14) alkaline phosphatase 87 IU/L 44-121 Not Available [facility] ([facility]) [address] [place], [address], 08/03/2023 08:22:32 08/02/20 23 08/03/2023 COMP. METAB OLIC PANEL (14) AST (SGOT) 16 IU/L 0-40 Not Available [facility] ([facility]) [address] [facility], [place], [address], 08/03/2023 08:22:32 08/02/20 23 08/03/2023 COMP. METAB OLIC PANEL (14) ALT (SGPT) 18 IU/L 0-44 Not Available [facility] ([facility]) [address] [facility], [place], [address], 08/03/2023 08:22:32 08/02/20 23 08/03/2023 LIPID PANEL cholesterol, total 158 mg/dL 100-19 9 Not Available [facility] ([facility]) [address] [facility], [place], [address], 08/03/2023 08:22:33 08/02/20 23 08/03/2023 LIPID PANEL triglyceride s 46 mg/dL 0-149 Not Available [facility] ([facility]) [address] [place], [address], 08/03/2023 08:22:33 08/02/20 23 08/03/2023 LIPID PANEL HDL cholesterol 57 mg/dL >39 Not Available [facility] ([facility]) [address] [facility], [place], [address], 08/03/2023 08:22:33 08/02/20 23 08/03/2023 LIPID PANEL VLDL cholesterol ainsley 10 mg/dL 5-40 Not Available [facility] ([facility]) [address] [place], [address], 08/03/2023 08:22:33 08/02/20 23 08/03/2023 LIPID PANEL LDL chol calc ([facility]) 91 mg/dL 0-99 Not Available [facility] ([facility]) [address] [place], [address], 08/03/2023 08:22:33 08/02/20 23 08/03/2023 LIPID PANEL comment: DYE RANGE TENDER Not Available [facility] ([facility]) [address] [facility], [place], [address], 08/03/2023 08:22:33 08/02/20 23 08/03/2023 HEMOG LOBIN A1C hemoglobin A1C 5.3 % 4.8-5. 6 Predi abete s: 5.7 - 6.4 Diabe cara: >6.4 Glyce david contr ol for adult s with diabe cara: <7.0 Not Available [facility] ([facility]) [address] [facility], [place], [address], 08/03/2023 08:22:33 04/10/20 24 04/11/2024 CBC WITH DIFFE RENTI AL/PL ATELE T WBC 5.9 x10e3 /uL 3.4-10 .8 Not Available [facility] ([facility]) [address] [facility], [place], [address], 04/11/2024 08:26:29 04/10/20 24 04/11/2024 CBC WITH DIFFE RENTI AL/PL ATELE T RBC 5.09 x10e6 /uL 4.14-5 .80 Not Available [facility] ([facility]) [address] [facility], [place], [address], 04/11/2024 08:26:29 04/10/20 24 04/11/2024 CBC WITH DIFFE RENTI AL/PL ATELE T hemoglobin 15.4 g/dL 13.0-1 7.7 Not Available [facility] ([facility]) [address] [place], [address], 04/11/2024 08:26:29 04/10/20 24 04/11/2024 CBC WITH DIFFE RENTI AL/PL ATELE T hematocrit 46.8 % 37.5-5 1.0 Not Available [facility] ([facility]) [address] [facility], [place], [address], 04/11/2024 08:26:29 04/10/20 24 04/11/2024 CBC WITH DIFFE RENTI AL/PL ATELE T MCV 92 fL 79-97 Not Available [facility] ([facility]) [address] [facility], [place], [address], 04/11/2024 08:26:29 04/10/20 24 04/11/2024 CBC WITH DIFFE RENTI AL/PL ATELE T MCH 30.3 pg 26.6-3 3.0 Not Available [facility] ([facility]) [address] [facility], [place], [address], 04/11/2024 08:26:29 04/10/20 24 04/11/2024 CBC WITH DIFFE RENTI AL/PL ATELE T MCHC 32.9 g/dL 31.5-3 5.7 Not Available [facility] ([facility]) [address] [place], [address], 04/11/2024 08:26:29 04/10/20 24 04/11/2024 CBC WITH DIFFE RENTI AL/PL ATELE T RDW 13.3 % 11.6-1 5.4 Not Available [facility] ([facility]) [address] [place], [address], 04/11/2024 08:26:29 04/10/20 24 04/11/2024 CBC WITH DIFFE RENTI AL/PL ATELE T platelets 246 x10e3 /uL 150-45 0 Not Available [facility] ([facility]) [address] [place], [address], 04/11/2024 08:26:29 04/10/20 24 04/11/2024 CBC WITH DIFFE RENTI AL/PL ATELE T neutrophils 66 % not estab. Not Available [facility] ([facility]) [address] [place], [address], 04/11/2024 08:26:29 04/10/20 24 04/11/2024 CBC WITH DIFFE RENTI AL/PL ATELE T lymphs 26 % not estab. Not Available [facility] ([facility]) [address] [facility], [place], [address], 04/11/2024 08:26:29 04/10/20 24 04/11/2024 CBC WITH DIFFE RENTI AL/PL ATELE T monocytes 5 % not estab. Not Available [facility] ([facility]) [address] [facility], [place], [address], 04/11/2024 08:26:29 04/10/20 24 04/11/2024 CBC WITH DIFFE RENTI AL/PL ATELE T eos 2 % not estab. Not Available [facility] ([facility]) [address] [facility], [place], [address], 04/11/2024 08:26:29 04/10/20 24 04/11/2024 CBC WITH DIFFE RENTI AL/PL ATELE T basos 1 % not estab. Not Available [facility] ([facility]) [address] [place], [address], 04/11/2024 08:26:29 04/10/20 24 04/11/2024 CBC WITH DIFFE RENTI AL/PL ATELE T immature cells DYE RANGE TENDER Not Available [facility] ([facility]) [address] [place], [address], 04/11/2024 08:26:29 04/10/20 24 04/11/2024 CBC WITH DIFFE RENTI AL/PL ATELE T neutrophils (absolute) 3.8 x10e3 /uL 1.4-7. 0 Not Available [facility] ([facility]) [address] [place], [address], 04/11/2024 08:26:29 04/10/20 24 04/11/2024 CBC WITH DIFFE RENTI AL/PL ATELE T lymphs (absolute) 1.5 x10e3 /uL 0.7-3. 1 Not Available [facility] ([facility]) [address] [facility], [place], [address], 04/11/2024 08:26:29 04/10/20 24 04/11/2024 CBC WITH DIFFE RENTI AL/PL ATELE T monocytes(ab solute) 0.3 x10e3 /uL 0.1-0. 9 Not Available [facility] ([facility]) [address] [facility], [place], [address], 04/11/2024 08:26:29 04/10/20 24 04/11/2024 CBC WITH DIFFE RENTI AL/PL ATELE T eos (absolute) 0.1 x10e3 /uL 0.0-0. 4 Not Available [facility] ([facility]) [address] [facility], [place], [address], 04/11/2024 08:26:29 04/10/20 24 04/11/2024 CBC WITH DIFFE RENTI AL/PL ATELE T baso (absolute) 0.1 x10e3 /uL 0.0-0. 2 Not Available [facility] ([facility]) [address] [facility], [place], [address], 04/11/2024 08:26:29 04/10/20 24 04/11/2024 CBC WITH DIFFE RENTI AL/PL ATELE T immature granulocytes 0 % not estab. Not Available [facility] ([facility]) [address] [facility], [place], [address], 04/11/2024 08:26:29 04/10/20 24 04/11/2024 CBC WITH DIFFE RENTI AL/PL ATELE T immature grans (abs) 0.0 x10e3 /uL 0.0-0. 1 Not Available [facility] ([facility]) [address] [facility], [place], [address], 04/11/2024 08:26:29 04/10/20 24 04/11/2024 CBC WITH DIFFE RENTI AL/PL ATELE T NRBC DYE RANGE TENDER Not Available [facility] ([facility]) [address] [facility], [place], [address], 04/11/2024 08:26:29 04/10/20 24 04/11/2024 CBC WITH NATALYA TANNER AL/PL ATELE T hematology comments: DYE RANGE TENDER Not Available [facility] ([facility]) [address] [facility], [place], [address], 04/11/2024 08:26:29 04/10/20 24 04/11/2024 COMP. METAB OLIC PANEL (14) glucose 92 mg/dL 70-99 Not Available [facility] ([facility]) [address] [facility] [place], [address], 04/11/2024 08:26:30 04/10/20 24 04/11/2024 COMP. METAB OLIC PANEL (14) BUN 15 mg/dL 6-20 Not Available [facility] ([facility]) [address] [facility], [place], [address], 04/11/2024 08:26:30 04/10/20 24 04/11/2024 COMP. METAB OLIC PANEL (14) creatinine 0.99 mg/dL 0.76-1 .27 Not Available [facility] ([facility]) [address] [facility], [place], [address], 04/11/2024 08:26:30 04/10/20 24 04/11/2024 COMP. METAB OLIC PANEL (14) eGFR 101 mL/mi n/1.7 3 >59 Not Available [facility] ([facility]) [address] [facility], [place], [address], 04/11/2024 08:26:30 04/10/20 24 04/11/2024 COMP. METAB OLIC PANEL (14) BUN/creatini ne ratio 15 9-20 Not Available [facility] ([facility]) [address] [facility], [place], [address], 04/11/2024 08:26:30 04/10/20 24 04/11/2024 COMP. METAB OLIC PANEL (14) sodium 141 mmol/ L 134-14 4 Not Available [facility] ([facility]) [address] [facility] [place], [address], 04/11/2024 08:26:30 04/10/20 24 04/11/2024 COMP. METAB OLIC PANEL (14) potassium 4.4 mmol/ L 3.5-5. 2 Not Available [facility] ([facility]) [address] [facility] [place], [address], 04/11/2024 08:26:30 04/10/20 24 04/11/2024 COMP. METAB OLIC PANEL (14) chloride 102 mmol/ L 96-106 Not Available [facility] ([facility]) [address] [facility] [place], [address], 04/11/2024 08:26:30 04/10/20 24 04/11/2024 COMP. METAB OLIC PANEL (14) carbon dioxide, total 26 mmol/ L 20-29 Not Available [facility] ([facility]) [address] [facility] [place], [address], 04/11/2024 08:26:30 04/10/20 24 04/11/2024 COMP. METAB OLIC PANEL (14) calcium 9.6 mg/dL 8.7-10 .2 Not Available [facility] ([facility]) [address] [facility] [place], [address], 04/11/2024 08:26:30 04/10/20 24 04/11/2024 COMP. METAB OLIC PANEL (14) protein, total 6.6 g/dL 6.0-8. 5 Not Available [facility] ([facility]) [address] [facility] [place], [address], 04/11/2024 08:26:30 04/10/20 24 04/11/2024 COMP. METAB OLIC PANEL (14) albumin 4.6 g/dL 4.1-5. 1 Not Available [facility] ([facility]) [address] [place], [address], 04/11/2024 08:26:30 04/10/20 24 04/11/2024 COMP. METAB OLIC PANEL (14) globulin, total 2.0 g/dL 1.5-4. 5 Not Available [facility] ([facility]) [address] [place], [address], 04/11/2024 08:26:30 04/10/20 24 04/11/2024 COMP. METAB OLIC PANEL (14) bilirubin, total 0.4 mg/dL 0.0-1. 2 Not Available [facility] ([facility]) [address] [place], [address], 04/11/2024 08:26:30 04/10/20 24 04/11/2024 COMP. METAB OLIC PANEL (14) alkaline phosphatase 76 IU/L 44-121 Not Available [facility] ([facility]) [address] [place], [address], 04/11/2024 08:26:30 04/10/20 24 04/11/2024 COMP. METAB OLIC PANEL (14) AST (SGOT) 14 IU/L 0-40 Not Available [facility] ([facility]) [address] [place], [address], 04/11/2024 08:26:30 04/10/20 24 04/11/2024 COMP. METAB OLIC PANEL (14) ALT (SGPT) 12 IU/L 0-44 Not Available [facility] ([facility]) [address] [place], [address], 04/11/2024 08:26:30 04/10/20 24 04/11/2024 LIPID PANEL cholesterol, total 181 mg/dL 100-19 9 Not Available [facility] ([facility]) [address] [facility], [place], [address], 04/11/2024 08:26:31 04/10/20 24 04/11/2024 LIPID PANEL triglyceride s 86 mg/dL 0-149 Not Available [facility] ([facility]) [address] [facility], [place], [address], 04/11/2024 08:26:31 04/10/20 24 04/11/2024 LIPID PANEL HDL cholesterol 72 mg/dL >39 Not Available [facility] ([facility]) [address] [facility], [place], [address], 04/11/2024 08:26:31 04/10/20 24 04/11/2024 LIPID PANEL VLDL cholesterol ainsley 16 mg/dL 5-40 Not Available [facility] ([facility]) [address] [facility], [place], [address], 04/11/2024 08:26:31 04/10/20 24 04/11/2024 LIPID PANEL LDL chol calc ([facility]) 93 mg/dL 0-99 Not Available [facility] ([facility]) [address] [facility], [place], [address], 04/11/2024 08:26:31 04/10/20 24 04/11/2024 LIPID PANEL LDL calc comment: DYE RANGE TENDER Not Available [facility] ([facility]) [address] [facility], [place], [address], 04/11/2024 08:26:31 07/08/20 25 07/09/2025 CBC WITH DIFFE RENTI AL/PL ATELE T WBC 4.8 x10e3 /uL 3.4-10 .8 normal Not Available [facility] ([facility]) [address] [facility], [place], [address], 07/09/2025 08:26:20 07/08/20 25 07/09/2025 CBC WITH DIFFE RENTI AL/PL ATELE T RBC 5.23 x10e6 /uL 4.14-5 .80 normal Not Available [facility] ([facility]) [address] [place], [address], 07/09/2025 08:26:20 07/08/20 25 07/09/2025 CBC WITH DIFFE RENTI AL/PL ATELE T hemoglobin 16.0 g/dL 13.0-1 7.7 normal Not Available [facility] ([facility]) [address] [place], [address], 07/09/2025 08:26:20 07/08/2007/09/2025 CBC WITH DIFFE RENTI AL/PL ATELE T hematocrit 48.4 % 37.5-5 1.0 normal Not Available [facility] ([facility]) [address] [place], [address], 07/09/2025 08:26:20 07/08/2007/09/2025 CBC WITH DIFFE RENTI AL/PL ATELE T MCV 93 fL 79-97 normal Not Available [facility] ([facility]) [address] [place], [address], 07/09/2025 08:26:20 07/08/2007/09/2025 CBC WITH DIFFE RENTI AL/PL ATELE T MCH 30.6 pg 26.6-3 3.0 normal Not Available [facility] ([facility]) [address] [place], [address], 07/09/2025 08:26:20 07/08/2007/09/2025 CBC WITH DIFFE RENTI AL/PL ATELE T MCHC 33.1 g/dL 31.5-3 5.7 normal Not Available [facility] ([facility]) [address] [place], [address], 07/09/2025 08:26:20 07/08/20 25 07/09/2025 CBC WITH DIFFE RENTI AL/PL ATELE T RDW 12.7 % 11.6-1 5.4 Not Available [facility] ([facility]) [address] [facility], [place], [address], 07/09/2025 08:26:20 07/08/2007/09/2025 CBC WITH DIFFE RENTI AL/PL ATELE T platelets 234 x10e3 /uL 150-45 0 normal Not Available [facility] ([facility]) [address] [facility], [place], [address], 07/09/2025 08:26:20 07/08/2007/09/2025 CBC WITH DIFFE RENTI AL/PL ATELE T neutrophils 58 % not estab. normal Not Available [facility] ([facility]) [address] [facility], [place], [address], 07/09/2025 08:26:20 07/08/2007/09/2025 CBC WITH DIFFE RENTI AL/PL ATELE T lymphs 31 % not estab. normal Not Available [facility] ([facility]) [address] [facility], [place], [address], 07/09/2025 08:26:20 07/08/2007/09/2025 CBC WITH DIFFE RENTI AL/PL ATELE T monocytes 7 % not estab. normal Not Available [facility] ([facility]) [address] [facility], [place], [address], 07/09/2025 08:26:20 07/08/2007/09/2025 CBC WITH DIFFE RENTI AL/PL ATELE T eos 3 % not estab. normal Not Available [facility] ([facility]) [address] [facility], [place], [address], 07/09/2025 08:26:20 07/08/20 25 07/09/2025 CBC WITH DIFFE RENTI AL/PL ATELE T basos 1 % not estab. normal Not Available [facility] ([facility]) [address] [facility], [place], [address], 07/09/2025 08:26:20 07/08/2007/09/2025 CBC WITH DIFFE RENTI AL/PL ATELE T immature cells DYE RANGE TENDER Not Available [facility] ([facility]) [address] [facility], [place], [address], 07/09/2025 08:26:20 07/08/20 25 07/09/2025 CBC WITH DIFFE RENTI AL/PL ATELE T neutrophils (absolute) 2.8 x10e3 /uL 1.4-7. 0 normal Not Available [facility] ([facility]) [address] [facility], [place], [address], 07/09/2025 08:26:20 07/08/20 25 07/09/2025 CBC WITH DIFFE RENTI AL/PL ATELE T lymphs (absolute) 1.5 x10e3 /uL 0.7-3. 1 normal Not Available [facility] ([facility]) [address] [place], [address], 07/09/2025 08:26:20 07/08/20 25 07/09/2025 CBC WITH DIFFE RENTI AL/PL ATELE T monocytes(ab solute) 0.3 x10e3 /uL 0.1-0. 9 normal Not Available [facility] ([facility]) [address] [facility], [place], [address], 07/09/2025 08:26:20 07/08/20 25 07/09/2025 CBC WITH DIFFE RENTI AL/PL ATELE T eos (absolute) 0.2 x10e3 /uL 0.0-0. 4 normal Not Available [facility] ([facility]) [address] [place], [address], 07/09/2025 08:26:20 07/08/20 25 07/09/2025 CBC WITH DIFFE RENTI AL/PL ATELE T baso (absolute) 0.1 x10e3 /uL 0.0-0. 2 normal Not Available [facility] ([facility]) [address] [facility], [place], [address], 07/09/2025 08:26:20 07/08/20 25 07/09/2025 CBC WITH DIFFE RENTI AL/PL ATELE T immature granulocytes 0 % not estab. Not Available [facility] ([facility]) [address] [facility], [place], [address], 07/09/2025 08:26:20 07/08/20 25 07/09/2025 CBC WITH DIFFE RENTI AL/PL ATELE T immature grans (abs) 0.0 x10e3 /uL 0.0-0. 1 Not Available [facility] ([facility]) [address] [facility], [place], [address], 07/09/2025 08:26:20 07/08/20 25 07/09/2025 CBC WITH DIFFE RENTI AL/PL ATELE T NRBC DYE RANGE TENDER Not Available [facility] ([facility]) [address] [facility], [place], [address], 07/09/2025 08:26:20 07/08/20 25 07/09/2025 CBC WITH DIFFE RENTI AL/PL ATELE T hematology comments: DYE RANGE TENDER Not Available [facility] ([facility]) [address] [facility], [place], [address], 07/09/2025 08:26:20 07/08/20 25 07/09/2025 COMP. METAB OLIC PANEL (14) glucose 87 mg/dL 70-99 normal Not Available [facility] ([facility]) [address] [place], [address], 07/09/2025 08:26:21 07/08/20 25 07/09/2025 COMP. METAB OLIC PANEL (14) BUN 18 mg/dL 6-20 normal Not Available [facility] ([facility]) [address] [facility], [place], [address], 07/09/2025 08:26:21 07/08/2007/09/2025 COMP. METAB OLIC PANEL (14) creatinine 1.02 mg/dL 0.76-1 .27 normal Not Available [facility] ([facility]) [address] [facility] [place], [address], 07/09/2025 08:26:21 07/08/20 25 07/09/2025 COMP. METAB OLIC PANEL (14) eGFR 97 mL/mi n/1.7 3 >59 normal Not Available [facility] ([facility]) [address] [facility] [place], [address], 07/09/2025 08:26:21 07/08/20 25 07/09/2025 COMP. METAB OLIC PANEL (14) BUN/creatini ne ratio 18 9-20 normal Not Available [facility] ([facility]) [address] [facility], [place], [address], 07/09/2025 08:26:21 07/08/2007/09/2025 COMP. METAB OLIC PANEL (14) sodium 141 mmol/ L 134-14 4 normal Not Available [facility] ([facility]) [address] [facility] [place], [address], 07/09/2025 08:26:21 07/08/20 25 07/09/2025 COMP. METAB OLIC PANEL (14) potassium 5.3 mmol/ L 3.5-5. 2 above high normal Not Available [facility] ([facility]) [address] [facility] [place], [address], 07/09/2025 08:26:21 07/08/20 25 07/09/2025 COMP. METAB OLIC PANEL (14) chloride 105 mmol/ L 96-106 normal Not Available [facility] ([facility]) [address] [facility] [place], [address], 07/09/2025 08:26:21 07/08/20 25 07/09/2025 COMP. METAB OLIC PANEL (14) carbon dioxide, total 23 mmol/ L 20-29 normal Not Available [facility] ([facility]) [address] [facility] [place], [address], 07/09/2025 08:26:21 07/08/20 25 07/09/2025 COMP. METAB OLIC PANEL (14) calcium 9.5 mg/dL 8.7-10 .2 normal Not Available [facility] ([facility]) [address] [facility] [place], [address], 07/09/2025 08:26:21 07/08/2007/09/2025 COMP. METAB OLIC PANEL (14) protein, total 6.9 g/dL 6.0-8. 5 normal Not Available [facility] ([facility]) [address] [facility] [place], [address], 07/09/2025 08:26:21 07/08/2007/09/2025 COMP. METAB OLIC PANEL (14) albumin 4.7 g/dL 4.1-5. 1 normal Not Available [facility] ([facility]) [address] [facility] [place], [address], 07/09/2025 08:26:21 07/08/20 25 07/09/2025 COMP. METAB OLIC PANEL (14) globulin, total 2.2 g/dL 1.5-4. 5 Not Available [facility] ([facility]) [address] [facility] [place], [address], 07/09/2025 08:26:21 07/08/2007/09/2025 COMP. METAB OLIC PANEL (14) bilirubin, total 0.6 mg/dL 0.0-1. 2 normal Not Available [facility] ([facility]) [address] [facility] [place], [address], 07/09/2025 08:26:21 07/08/20 25 07/09/2025 COMP. METAB OLIC PANEL (14) alkaline phosphatase 81 IU/L 47-123 normal Not Available [facility] ([facility]) [address] [place], [address], 07/09/2025 08:26:21 07/08/20 25 07/09/2025 COMP. METAB OLIC PANEL (14) AST (SGOT) 17 IU/L 0-40 normal Not Available [facility] ([facility]) [address] [facility] [place], [address], 07/09/2025 08:26:21 07/08/20 25 07/09/2025 COMP. METAB OLIC PANEL (14) ALT (SGPT) 19 IU/L 0-44 normal Not Available [facility] ([facility]) [address] [place], [address], 07/09/2025 08:26:21 07/08/20 25 07/09/2025 LIPID PANEL cholesterol, total 191 mg/dL 100-19 9 normal Not Available [facility] ([facility]) [address] [place], [address], 07/09/2025 08:26:21 07/08/20 25 07/09/2025 LIPID PANEL triglyceride s 59 mg/dL 0-149 normal Not Available [facility] ([facility]) [address] [place], [address], 07/09/2025 08:26:21 07/08/20 25 07/09/2025 LIPID PANEL HDL cholesterol 72 mg/dL >39 normal Not Available [facility] ([facility]) [address] [place], [address], 07/09/2025 08:26:21 07/08/20 25 07/09/2025 LIPID PANEL VLDL cholesterol ainsley 11 mg/dL 5-40 Not Available [facility] ([facility]) [address] [place], [address], 07/09/2025 08:26:21 07/08/2007/09/2025 LIPID PANEL LDL chol calc ([facility]) 108 mg/dL 0-99 above high normal Not Available [facility] ([facility]) [address] [facility], [place], [address], 07/09/2025 08:26:21 07/08/2007/09/2025 LIPID PANEL LDL calc comment: DYE RANGE TENDER Not Available [facility] ([facility]) [address] [facility], [place], [address], 07/09/2025 08:26:21 07/15/2007/16/2025 COMP. METAB OLIC PANEL (14) glucose 86 mg/dL 70-99 normal Not Available [facility] ([facility]) [address] [place], [address], 07/16/2025 10:12:47 07/15/20 25 07/16/2025 COMP. METAB OLIC PANEL (14) BUN 17 mg/dL 6-20 normal Not Available [facility] ([facility]) [address] [place], [address], 07/16/2025 10:12:47 07/15/20 25 07/16/2025 COMP. METAB OLIC PANEL (14) creatinine 0.98 mg/dL 0.76-1 .27 normal Not Available [facility] ([facility]) [address] [place], [address], 07/16/2025 10:12:47 07/15/20 25 07/16/2025 COMP. METAB OLIC PANEL (14) eGFR 102 mL/mi n/1.7 3 >59 normal Not Available [facility] ([facility]) [address] [place], [address], 07/16/2025 10:12:47 07/15/20 25 07/16/2025 COMP. METAB OLIC PANEL (14) BUN/creatini ne ratio 17 9-20 normal Not Available [facility] ([facility]) [address] [facility], [place], [address], 07/16/2025 10:12:47 07/15/20 25 07/16/2025 COMP. METAB OLIC PANEL (14) sodium 140 mmol/ L 134-14 4 normal Not Available [facility] ([facility]) [address] [facility], [place], [address], 07/16/2025 10:12:47 07/15/20 25 07/16/2025 COMP. METAB OLIC PANEL (14) potassium 5.1 mmol/ L 3.5-5. 2 normal Not Available [facility] ([facility]) [address] [facility], [place], [address], 07/16/2025 10:12:47 07/15/20 25 07/16/2025 COMP. METAB OLIC PANEL (14) chloride 102 mmol/ L 96-106 normal Not Available [facility] ([facility]) [address] [facility], [place], [address], 07/16/2025 10:12:47 07/15/20 25 07/16/2025 COMP. METAB OLIC PANEL (14) carbon dioxide, total 25 mmol/ L 20-29 normal Not Available [facility] ([facility]) [address] [facility], [place], [address], 07/16/2025 10:12:47 07/15/20 25 07/16/2025 COMP. METAB OLIC PANEL (14) calcium 9.4 mg/dL 8.7-10 .2 normal Not Available [facility] ([facility]) [address] [place], [address], 07/16/2025 10:12:47 07/15/20 25 07/16/2025 COMP. METAB OLIC PANEL (14) protein, total 6.6 g/dL 6.0-8. 5 normal Not Available [facility] ([facility]) [address] [facility] [place], [address], 07/16/2025 10:12:47 07/15/20 25 07/16/2025 COMP. METAB OLIC PANEL (14) albumin 4.7 g/dL 4.1-5. 1 normal Not Available [facility] ([facility]) [address] [facility] [place], [address], 07/16/2025 10:12:47 07/15/20 25 07/16/2025 COMP. METAB OLIC PANEL (14) globulin, total 1.9 g/dL 1.5-4. 5 Not Available [facility] ([facility]) [address] [facility] [place], [address], 07/16/2025 10:12:47 07/15/20 25 07/16/2025 COMP. METAB OLIC PANEL (14) bilirubin, total 0.5 mg/dL 0.0-1. 2 normal Not Available [facility] ([facility]) [address] [facility] [place], [address], 07/16/2025 10:12:47 07/15/20 25 07/16/2025 COMP. METAB OLIC PANEL (14) alkaline phosphatase 82 IU/L 47-123 normal Not Available [facility] ([facility]) [address] [facility] [place], [address], 07/16/2025 10:12:47 07/15/20 25 07/16/2025 COMP. METAB OLIC PANEL (14) AST (SGOT) 16 IU/L 0-40 normal Not Available [facility] ([facility]) [address] [place], [address], 07/16/2025 10:12:47 07/15/20 25 07/16/2025 COMP. METAB OLIC PANEL (14) ALT (SGPT) 17 IU/L 0-44 normal Not Available [facility] ([facility]) [address] [place], [address], 07/16/2025 10:12:47 04/10/2004/17/2024 elect patitopaulo [email or web address] am No observ ation record ed. edadolfo [facility] [address], [place], [address], 04/17/2024 11:45:41 04/18/20 24 04/10/2024 elect tom [email or web address] am No observ ation record ed. VAN [facility] [address], [place], [address], 04/18/2024 16:13:18 Result Notes None recorded. Problems Name Problem SNOMED Code Status Onset Date Resolution Date Notes Provider Name and Address Organization Details Recorded Time Prolapsed lumbar intervertebra l disc 709832888 Active 2023 Leanne Chadwick PA-C [facility] [address], [place], [address] [facility] [place] - [facility] 11:26:48 Problem Notes None [...] Available Not Available Not Available amoxicillin 875 mg-josiah herzog clavulanate 125 mg tablet TAKE 1 TABLET [...] Not Available Not Available Not Available Vitals Date Recorded Body height Respiratory rate Heart rate Oxygen saturation Body temperature Body mass index (BMI) Body weight Pain severity - 0-10 verbal numeric rating [Score] - Reported Systolic And Diastolic Provider Name and Address Organization Details Last Updated DateTime 4 182.88 cm 14 /min 93 /min 99 % 98.6 [degF] 22.8 kg/m2 34094.5 2 g 0 148/88 mm[Hg] Hannah Jose [facility] - [facility] 4 11:09:45 Date Recorded Respiratory rate Body weight Body temperature Heart rate Oxygen saturation Pain severity - 0-10 verbal numeric rating [Score] - Reported Body mass index (BMI) Body height Systolic And Diastolic Provider Name and Address Organization Details Last Updated DateTime 5 14 /min 99866.8 9 g 98.2 [degF] 80 /min 98 % 0 23.3 kg/m2 182.88 cm 124/68 mm[Hg] Hannah Jose [facility] - [facility] 5 08:23:20 Date Recorded Respiratory rate Body weight Body mass index (BMI) Body height Body temperature Heart rate Oxygen saturation Pain severity - 0-10 verbal numeric rating [Score] - Reported Systolic And Diastolic Provider Name and Address Organization Details Last Updated DateTime 3 14 /min 21243.0 8 g 19.9 kg/m2 182.88 cm 98.1 [degF] 80 /min 97 % 0 118/64 mm[Hg] Hannah [facility]IP[facility] - [facility] 3 08:20:53 Social History Question Answer Notes LastModified by Organizat ion Details LastModified Time Tobacco Smoking Status Never Smoker Hannah june, [place] - [facility] 08/02/2023 08:21:42 Are You Blind Or Do You Have Difficulty Seeing? No [email or web address] Information not available 08/02/2023 Are You Deaf Or Do You Have Serious Difficulty Hearing? No [email or web address] Information not available 08/02/2023 Live Alone Or With Others? With Others Information not available 09/02/2020 What Was The Date Of Your Most Recent Tobacco Screening? 07/08/2025 [email or web address] Information not available 07/08/2025 How Many Children Do You Have? 3 [email or web address] Information not available 08/02/2023 What Is Your Relationship Status? Information not available 09/02/2020 Has Tobacco Cessation Counseling Been Provided? No [email or web address] Information not available 08/02/2023 Do You Have Difficulty Walking Or Climbing Stairs? No [email or web address] Information not available 08/02/2023 Sex: Male Functional Status Question Answer Note LastModified by [employer] ion Details LastModified Time How many times per week do you consume alcohol? Less than 1 time per week [email or web address] Information not available 08/02/2023 Do you use any illicit or recreational drugs? No [email or web address] Information not available 08/02/2023 Do you or have you ever used any other forms of tobacco or nicotine? No [email or web address] Information not available 08/02/2023 What is your level of alcohol consumption? Occasional [email or web address] Information not available 08/02/2023 Do you or have you ever used smokeless tobacco? Never used smokeless tobacco [email or web address] Information not available 08/02/2023 Are you currently employed? Yes [email or web address] Information not available 08/02/2023 Do you have transportation difficulties? No [email or web address] Information not available 08/02/2023 Are you able to walk independently without assistance or assistive devices? YESWOREST [email or web address] Information not available 08/02/2023 Do you have difficulty doing errands alone? No [email or web address] Information not available 08/02/2023 Are you able to care for yourself independently? Yes [email or web address] Information not available 08/02/2023 What is your occupation? [email or web address] Information not available 09/02/2020 Do you have difficulty dressing, bathing, grooming, or toileting? No [email or web address] Information not available 08/02/2023 Mental Status Question Answer Note LastModified by Organization D etails LastModified Time Do you have difficulty concentrating, remembering or making decisions? No [email or web address] Information no t available 08/02/2023 Family History Relationship Description Onset Age of this Age Resolved Age Notes LastModified by Organization Details LastModified Time Father No current problems or disability Not available 09/02 10:27:56 Mother No current problems or disability Not available 09/02 10:27:56 Medical History Condition Response Pancreatitis N Coronary Artery Disease N Other N Gout N Atrial Fibrillation N congenital heart disease N Kidney Stones N Blood Diseases N Hyperthyroidism N Rheumatoid arthritis N Blood Transfusion N Erectile Dysfunction N amputation N Colonoscopy N Skin Lesions N Depression N COPD N Pneumonia N Incontinence N Murmur N [...] colitis N Cerebrovascular Disease N Depression N Guillain-Haywood N Sleep Apnea N Aneurysm N Bronchitis N Heart Disease N Suicidal Ideation N Pre-Eclampsia N Hypertension N Osteoporosis N Immunizations Vaccine Type Date Status Note Provider Nam e and Address Organization Details Recorded Time influenza, unspecified formulation 5 completed Hannah june [facility] 07/08/2025 08:23:48 Influenza, split virus, quadrivalent, preservative 3 completed Hannah june [facility] 08/02/2023 09:29:11 COVID-19, mRNA, LNP-S, PF, 100 mcg/0.5mL dose or 50 mcg/0.25mL dose 1 completed Earlene Pierre RN [address] [place] [address], [id number] 11/12/2020 09:20:38 Influenza, MDCK, quadrivalent, PF 0 completed Hannah june [facility] 08/02/2023 08:16:52 Influenza, MDCK, quadrivalent, PF 2 completed Hannah june [facility] 08/02/2023 08:16:53 MMR 9 completed Hannah june [facility] 08/02/2023 08:16:53 COVID-19, mRNA, LNP-S, PF, 100 mcg/0.5mL dose or 50 mcg/0.25mL dose 1 completed Hannah june [facility] 08/02/2023 08:16:53 COVID-19, mRNA, LNP-S, PF, 100 mcg/0.5mL dose or 50 mcg/0.25mL dose 1 completed Hannah Jose null, [place] - [facility] 08/02/2023 08:16:53 Tdap 4 completed Hannah Jose [place] - [facility] 08/02/2023 08:16:53 Td (adult), 2 Lf tetanus toxoid, preservative free, adsorbed 3 completed Hannah Jose [place] - [facility] 08/02/2023 08:16:53 Hep B, adolescent or pediatric 2 completed Hannah Jose [place] - [facility] 08/02/2023 08:16:53 Hep B, adolescent or pediatric 9 completed Hannah Jose [place] - [facility] 08/02/2023 08:16:53 Hep B, adolescent or pediatric 0 completed Hannah Jose [place] - [facility] 08/02/2023 08:16:53 Hep B, adolescent or pediatric 0 completed Hannah Jose null, [facility] 08/02/2023 08:16:53 Influenza, split virus, quadrivalent, PF 1 completed Hannah Jose null, [facility] 08/02/2023 08:16:53 Past Encounters Encounter ID Performer Location Encounter Start Date Encounter Closed Date Diagnosis/Indication Diagnosis SNOMED-CT Code Diagnosis ICD10 Code Diagnosis IMO Codes Diagnosis Note [id number] Etta Jose [employer]IST [address] [place] [address] 09/02/2020 10:24:33 09/02/2020 11:07:06 Viral screening 969077304 Z11.59 [id number] Juanita Moeller APRN [address] [place] [address] 11/13/2020 14:53:40 11/13/2020 16:07:32 Viral screening 002769769 Z11.52 [id number] KVNG Jonas [address] [address] 08/02/2023 08:08:24 08/02/2023 08:41:22 General examination of patient 472315097 Z00.00 Hyperlipid emia screening 142651879 Z13.220 checking today Endocrine/ metabolic screening 245140381 Z13.228 checking today Exercises education, guidance, and counseling 221504930 Z71.82 The patient was advised to continue a healthy diet and exercise regularly. Dietary ma nagement surveillance 634659738 Z71.3 Influenza vaccine needed 3625267839 106 Z23 Pt needs Screening for malignant neoplasm of skin 790447396 Z12.83 No concerning lesions or moles [id number] KVNG Jonas [address] [address] 04/10/2024 10:54:06 04/10/2024 11:45:33 General examination of patient 771602263 Z00.00 Hyperlipid emia screening 311714250 Z13.220 checking today Endocrine/ metabolic screening 050997811 Z13.228 checking today Exercises education, guidance, and counseling [id number] Z71.82 The patient was advised to continue a healthy diet and exercise regularly. Dietary ashley nagement surveillance [id number] Z71.3 Pre-surger y evaluation [id number] Z01.818 Pt is low risk and cleared for surgeryECG looks stable- does have tall QRS complexes but pt is tall and thin Prolapsed lumbar intervertebral disc 943911136 M51.26 Pt is having surgery [id number] KVNG Jonas [address] [address] 07/08/2025 08:14:00 07/08/2025 08:53:50 Body mass index 20-24 - normal 727940010 Z68.23 [id number] Hyperlipid emia screening 455838274 Z13.220 [id number] checking today Endocrine/ metabolic screening 122031511 Z13.29 [id number] checking today General ex amination of patient 576929869 Z00.00 [id number] KVNG Jonas [address] [address] 07/15/2025 09:17:49 07/15/2025 10:12:40 Health Concerns Section Related Observation LastModified by Organization Detai ls LastModified Time None Recorded Concern Status LastModified by Organization Details LastModified Time None Recorded Advance Directives Directive None Recorded Payers Insurance Date Sequence Insurance Name Policy Number Policy Elias Covered Member ID Elias Member ID Guarantor Name 07/15/2025 1 [place] [id number] Mor Uribe [id number] Mor Sextonloyd Notes Date Note Type Note Provider Name and Address Organization Details Recorded Time 11/13/2020 text/html Patient presents to the office today due to possible COVID-19 exposure. Pt is currently asymptomatic. No known exposure. Denies any covid symptoms at this time. Needing to be tested for work due to going out of state. Juanita Moeller, DANI [address], [place], [address], [place] - [facility] 11/13/2020 15:50:54 08/02/2023 text/html pt presents to the office for an annual wellness exam. pt would like flu vaccine Leanne Chadwick PA-C [address], [place], [address], [place] - [facility] 08/02/2023 08:34:10 04/10/2024 text/html pt presents to the office for an annual wellness exam and a preop exam. pt is having surgery with [facility]. pt is having surgery 04/17/2024 Pt had had multiple surgeries and did well with the anesthesia Leanne Chadwick PA-C [address], [place], [address], [place] - [facility] 04/10/2024 11:42:40 07/08/2025 text/html pt presents to the office for lab work and check up for workPt is doing well today, has no complaints Leanne Chadwick PA-C [address], [place], [address], [place] - [facility] 07/08/2025 08:39:39
--- OUTSIDE RECORDS SUMMARY | 2025-09-24 18:56 | XMS_ITS | Clinical Summary ---
Author Organization [facility] [place] [address] Phone Care Team Providers Care Precision Devices Inspector/Tester Name Role Phone Unavailable Primary Care Provider [...] MALLEOLUS ; Surgeon: Shay Blue MD; Location: [facility]; Service: Orthopedics Medical devices from this surgery [...] on file Sexual Orientation Not on file Last Filed Vital Signs Vital Sign Reading [...] Tdap) 11/22/2023 11/22/2013 COVID-19 Vaccine (1 - 2024-2 6 season) 2025 Influenza Vaccine (#1) 2025 Meningococcal B Vaccine Aged Out No l onger eligible based on patient's age to complete this topic Pneumococcal Vaccine 0-49 Aged Out No longer eligible based on patient's age to complete this topic Medical Devices Implanted Type Area Tree Feller Device Identifier Shelf Expiration Date Model / Serial / Lot Screw Cannulated Asnis Iii Ss 4 X 44mm - [id number] Implanted:Qty: 2 on 10/20/2012 by Shay Blue MD at [facility] Right: Ankle JACK:ORTHOPEDI CS [id number] / / Insurance [employer]
--- OUTSIDE RECORDS SUMMARY | 2025-09-24 18:56 | XMS_ITS | Continuity of Care Document ---
Author Organization Milo Dvaid [facility] Address [address] [place] [address] Assessment No assessment recorded. Plan of Treatment Reminders Order Date Submit Date Provider Last Modified By Organization Details Last Modified Time Details Appointments None recorded . Lab lipid panel, serum 07/08/20 JAKE [facility], [address], [address], [place], [address], 08:26:21 CBC w/ auto diff 07/08/20 JAKE [facility], [address], [address] [address], [place], [address], 08:26:20 CMP, serum or plasma 07/08/20 JAKE [facility], [address], [place] [address], [place], [address], 08:26:21 Referral None recorded . Procedures None recorded . Surgeries None recorded . Imaging None recorded . Medication Orders None recorded . Patient TargetsNo targets recorded. Patient Instructions Encounter Date Encounter Id Patient Instructions Last Modified By Organization Details Last Modified Time 07/08/2025 [id number] Call with change s Discussed importance of [...] 3.4-10 .8 normal Not Available [facility] ([facility]) [address] [place], [address], 07/09/2025 08:26:20 07/08/20 25 07/09/2025 CBC WITH DIFFE RENTI AL/PL ATELE T RBC 5.23 x10e6 /uL 4.14-5 .80 normal Not Available [facility] ([facility]) [address] [place], [address], 07/09/2025 08:26:20 07/08/2007/09/2025 CBC WITH DIFFE RENTI AL/PL ATELE T hemoglobin 16.0 g/dL 13.0-1 7.7 normal Not Available [facility] ([facility]) [address] [place], [address], 07/09/2025 08:26:20 07/08/2007/09/2025 CBC WITH DIFFE RENTI AL/PL ATELE T hematocrit 48.4 % 37.5-5 1.0 normal Not Available [facility] ([facility]) [address] [place], [address], 07/09/2025 08:26:20 07/08/2007/09/2025 CBC WITH DIFFE RENTI AL/PL ATELE T MCV 93 fL 79-97 normal Not Available [facility] ([facility]) [address] [place], [address], 07/09/2025 08:26:20 07/08/2007/09/2025 CBC WITH DIFFE RENTI AL/PL ATELE T MCH 30.6 pg 26.6-3 3.0 normal Not Available [facility] ([facility]) [address] [place], [address], 07/09/2025 08:26:20 07/08/2007/09/2025 CBC WITH DIFFE RENTI AL/PL ATELE T MCHC 33.1 g/dL 31.5-3 5.7 normal Not Available [facility] ([facility]) [address] [facility], [place], [address], 07/09/2025 08:26:20 07/08/2007/09/2025 CBC WITH DIFFE RENTI AL/PL ATELE T RDW 12.7 % 11.6-1 5.4 Not Available [facility] ([facility]) [address] [facility], [place], [address], 07/09/2025 08:26:20 07/08/2007/09/2025 CBC WITH DIFFE RENTI AL/PL ATELE T platelets 234 x10e3 /uL 150-45 0 normal Not Available [facility] ([facility]) [address] [facility], [place], [address], 07/09/2025 08:26:20 07/08/2007/09/2025 CBC WITH DIFFE RENTI AL/PL ATELE T neutrophils 58 % not estab. normal Not Available [facility] ([facility]) [address] [facility], [place], [address], 07/09/2025 08:26:20 07/08/2007/09/2025 CBC WITH DIFFE RENTI AL/PL ATELE T lymphs 31 % not estab. normal Not Available [facility] ([facility]) [address] [facility], [place], [address], 07/09/2025 08:26:20 07/08/2007/09/2025 CBC WITH DIFFE RENTI AL/PL ATELE T monocytes 7 % not estab. normal Not Available [facility] ([facility]) [address] [facility], [place], [address], 07/09/2025 08:26:20 07/08/2007/09/2025 CBC WITH DIFFE RENTI AL/PL ATELE T eos 3 % not estab. normal Not Available [facility] ([facility]) [address] [facility], [place], [address], 07/09/2025 08:26:20 07/08/2007/09/2025 CBC WITH DIFFE RENTI AL/PL ATELE T basos 1 % not estab. normal Not Available [facility] ([facility]) [address] [facility], [place], [address], 07/09/2025 08:26:20 07/08/2007/09/2025 CBC WITH DIFFE RENTI AL/PL ATELE T immature cells ER PHYSICIAN Not Available [facility] ([facility]) [address] [facility], [place], [address], 07/09/2025 08:26:20 07/08/2007/09/2025 CBC WITH DIFFE RENTI AL/PL ATELE T neutrophils (absolute) 2.8 x10e3 /uL 1.4-7. 0 normal Not Available [facility] ([facility]) [address] [place], [address], 07/09/2025 08:26:20 07/08/20 25 07/09/2025 CBC WITH DIFFE RENTI AL/PL ATELE T lymphs (absolute) 1.5 x10e3 /uL 0.7-3. 1 normal Not Available [facility] ([facility]) [address] [place], [address], 07/09/2025 08:26:20 07/08/2007/09/2025 CBC WITH DIFFE RENTI AL/PL ATELE T monocytes(ab solute) 0.3 x10e3 /uL 0.1-0. 9 normal Not Available [facility] ([facility]) [address] [facility], [place], [address], 07/09/2025 08:26:20 07/08/2007/09/2025 CBC WITH DIFFE RENTI AL/PL ATELE T eos (absolute) 0.2 x10e3 /uL 0.0-0. 4 normal Not Available [facility] ([facility]) [address] [facility], [place], [address], 07/09/2025 08:26:20 07/08/20 25 07/09/2025 CBC WITH DIFFE RENTI AL/PL ATELE T baso (absolute) 0.1 x10e3 /uL 0.0-0. 2 normal Not Available [facility] ([facility]) [address] [facility], [place], [address], 07/09/2025 08:26:20 07/08/2007/09/2025 CBC WITH DIFFE RENTI AL/PL ATELE T immature granulocytes 0 % not estab. Not Available [facility] ([facility]) [address] [facility], [place], [address], 07/09/2025 08:26:20 07/08/2007/09/2025 CBC WITH DIFFE RENTI AL/PL ATELE T immature grans (abs) 0.0 x10e3 /uL 0.0-0. 1 Not Available [facility] ([facility]) [address] [facility], [place], [address], 07/09/2025 08:26:20 07/08/2007/09/2025 CBC WITH DIFFE RENTI AL/PL ATELE T NRBC ER PHYSICIAN Not Available [facility] ([facility]) [address] [facility], [place], [address], 07/09/2025 08:26:20 07/08/2007/09/2025 CBC WITH DIFFE RENTI AL/PL ATELE T hematology comments: ER PHYSICIAN Not Available [facility] ([facility]) [address] [facility], [place], [address], 07/09/2025 08:26:20 10/13/20 25 07/09/2025 COMP. METAB OLIC PANEL (14) glucose 87 mg/dL 70-99 normal Not Available [facility] ([facility]) [address] [place], [address], 07/09/2025 08:26:21 07/08/20 25 07/09/2025 COMP. METAB OLIC PANEL (14) BUN 18 mg/dL 6-20 normal Not Available [facility] ([facility]) [address] [place], [address], 07/09/2025 08:26:21 07/08/20 25 07/09/2025 COMP. METAB OLIC PANEL (14) creatinine 1.02 mg/dL 0.76-1 .27 normal Not Available [facility] ([facility]) [address] [facility], [place], [address], 07/09/2025 08:26:21 07/08/20 25 07/09/2025 COMP. METAB OLIC PANEL (14) eGFR 97 mL/mi n/1.7 3 >59 normal Not Available [facility] ([facility]) [address] [place], [address], 07/09/2025 08:26:21 07/08/20 25 07/09/2025 COMP. METAB OLIC PANEL (14) BUN/creatini ne ratio 18 9-20 normal Not Available [facility] ([facility]) [address] [place], [address], 07/09/2025 08:26:21 07/08/20 25 07/09/2025 COMP. METAB OLIC PANEL (14) sodium 141 mmol/ L 134-14 4 normal Not Available [facility] ([facility]) [address] [place], [address], 07/09/2025 08:26:21 07/08/20 25 07/09/2025 COMP. METAB OLIC PANEL (14) potassium 5.3 mmol/ L 3.5-5. 2 above high normal Not Available [facility] ([facility]) [address] [facility] [place], [address], 07/09/2025 08:26:21 07/08/2007/09/2025 COMP. METAB OLIC PANEL (14) chloride 105 mmol/ L 96-106 normal Not Available [facility] ([facility]) [address] [facility] [place], [address], 07/09/2025 08:26:21 07/08/20 25 07/09/2025 COMP. METAB OLIC PANEL (14) carbon dioxide, total 23 mmol/ L 20-29 normal Not Available [facility] ([facility]) [address] [facility] [place], [address], 07/09/2025 08:26:21 07/08/20 25 07/09/2025 COMP. METAB OLIC PANEL (14) calcium 9.5 mg/dL 8.7-10 .2 normal Not Available [facility] ([facility]) [address] [facility], [place], [address], 07/09/2025 08:26:21 07/08/2007/09/2025 COMP. METAB OLIC PANEL (14) protein, total 6.9 g/dL 6.0-8. 5 normal Not Available [facility] ([facility]) [address] [facility] [place], [address], 07/09/2025 08:26:21 07/08/2007/09/2025 COMP. METAB OLIC PANEL (14) albumin 4.7 g/dL 4.1-5. 1 normal Not Available [facility] ([facility]) [address] [facility] [place], [address], 07/09/2025 08:26:21 07/08/20 25 07/09/2025 COMP. METAB OLIC PANEL (14) globulin, total 2.2 g/dL 1.5-4. 5 Not Available [facility] ([facility]) [address] [place], [address], 07/09/2025 08:26:21 07/08/2007/09/2025 COMP. METAB OLIC PANEL (14) bilirubin, total 0.6 mg/dL 0.0-1. 2 normal Not Available [facility] ([facility]) [address] [facility], [place], [address], 07/09/2025 08:26:21 07/08/20 25 07/09/2025 COMP. METAB OLIC PANEL (14) alkaline phosphatase 81 IU/L 47-123 normal Not Available [facility] ([facility]) [address] [facility], [place], [address], 07/09/2025 08:26:21 07/08/20 25 07/09/2025 COMP. METAB OLIC PANEL (14) AST (SGOT) 17 IU/L 0-40 normal Not Available [facility] ([facility]) [address] [facility], [place], [address], 07/09/2025 08:26:21 07/08/2007/09/2025 COMP. METAB OLIC PANEL (14) ALT (SGPT) 19 IU/L 0-44 normal Not Available [facility] ([facility]) [address] [facility], [place], [address], 07/09/2025 08:26:21 07/08/20 25 07/09/2025 LIPID PANEL cholesterol, total 191 mg/dL 100-19 9 normal Not Available [facility] ([facility]) [address] [place], [address], 07/09/2025 08:26:21 07/08/2007/09/2025 LIPID PANEL triglyceride s 59 mg/dL 0-149 normal Not Available [facility] ([facility]) [address] [place], [address], 07/09/2025 08:26:21 07/08/20 25 07/09/2025 LIPID PANEL HDL cholesterol 72 mg/dL >39 normal Not Available [facility] ([facility]) [address] [facility], [place], [address], 07/09/2025 08:26:21 07/08/2007/09/2025 LIPID PANEL VLDL cholesterol ainsley 11 mg/dL 5-40 Not Available [facility] ([facility]) [address] [facility], [place], [address], 07/09/2025 08:26:21 07/08/2007/09/2025 LIPID PANEL LDL chol calc ([facility]) 108 mg/dL 0-99 above high normal Not Available [facility] ([facility]) [address] [facility], [place], [address], 07/09/2025 08:26:21 07/08/2007/09/2025 LIPID PANEL LDL calc comment: ER PHYSICIAN Not Available [facility] ([facility]) [address] [facility], [place], [address], 07/09/2025 08:26:21 Result Notes None recorded. Problems Name Problem SNOMED Code Status Onset Date Resolution Date Notes Provider Name and Address Organization Details Recorded Time Prolapsed lumbar intervertebra l disc 822599748 Active 2023 Leanne Chadwick PA-C [address] [place] [address], [address] , [place] - [facility] 4 11:26:48 Problem Notes None recorded. Procedures Surgical [...] Not Available Not Available Vitals Date Recorded Respiratory rate Body weight Body temperature Heart rate Oxygen saturation Pain severity - 0-10 verbal numeric rating [Score] - Reported Body mass index (BMI) Body height Systolic And Diastolic Provider Name and Address Organization Details Last Updated DateTime 14 /min 40537.8 9 g 98.2 [degF] 80 /min 98 % 0 23.3 kg/m2 182.88 cm 124/68 mm[Hg] Hannah Jose [place] - [facility] 5 08:23:20 Social History Question Answer Notes LastModified by Organizat ion Details LastModified Time Tobacco Smoking Status Never Smoker Hannah Jose null, [place] - [facility] 08/02/2023 08:21:42 Are You Blind Or Do You Have Difficulty Seeing? No [email or web address] Information not available 08/02/2023 Are You Deaf Or Do You Have Serious Difficulty Hearing? No [email or web address] Information not available 08/02/2023 Live Alone Or With Others? With Others Information not available 09/02/2020 What Was The Date Of Your Most Recent Tobacco Screening? 07/08/2025 [email or web address] Information not available 07/08/2025 How Many Children Do You Have? 3 [email or web address] Information not available 08/02/2023 What Is Your Relationship Status? Information not available 09/02/2020 Has Tobacco Cessation Counseling Been Provided? No [email or web address] Information not available 08/02/2023 Do You Have Difficulty Walking Or Climbing Stairs? No [email or web address] Information not available 08/02/2023 Sex: Male Functional Status Question Answer Note LastModified by Organizat ion Details LastModified Time How many times per week do you consume alcohol? Less than 1 time per week [email or web address] Information not available 08/02/2023 Do you use any illicit or recreational drugs? No [email or web address] Information not available 08/02/2023 Do you or have you ever used any other forms of tobacco or nicotine? No [email or web address] Information not available 08/02/2023 What is your level of alcohol consumption? Occasional [email or web address] Information not available 08/02/2023 Do you or have you ever used smokeless tobacco? Never used smokeless tobacco [email or web address] Information not available 08/02/2023 Are you currently employed? Yes [email or web address] Information not available 08/02/2023 Do you have transportation difficulties? No [email or web address] Information not available 08/02/2023 Are you able to walk independently without assistance or assistive devices? YESWOREST [email or web address] Information not available 08/02/2023 Do you have difficulty doing errands alone? No [email or web address] Information not available 08/02/2023 Are you able to care for yourself independently? Yes [email or web address] Information not available 08/02/2023 What is your occupation? [email or web address] Information not available 09/02/2020 Do you have difficulty dressing, bathing, grooming, or toileting? No [email or web address] Information not available 08/02/2023 Mental Status Question Answer Note LastModified by Organization D etails LastModified Time Do you have difficulty concentrating, remembering or making decisions? No [email or web address] Information no t available 08/02/2023 Family History Relationship Description Onset Age of this Age Resolved Age Notes LastModified by Organization Details LastModified Time Father No current problems or disability Not available 09/02 10:27:56 Mother No current problems or disability Not available 09/02 10:27:56 Medical History Condition Response Coronary Artery Disease N Blood Diseases N Hyperthyroidism N Rheumatoid arthritis N Blood Transfusion N amputation N Colonoscopy N COPD N Depression N Pneumonia N Incontinence N Edema N Anxiety Disorder N Obesity N Restless Leg Syndrome N Infertility N Polyps N Carpal Tunnel N Mental Disorder N Acid Reflux (GERD) N Stroke N Varicosities N Tendonitis N Skin Cancer N Fibromyalgia N Anal Fissure N Irritable Bowel Syndrome N Kidney Disease N Hospitalizations N Gallstones N Goiter N Acne N Skin Problems N Eating Disorder N Trinidad's Esophagus N Hypertriglyceridemia N MRSA exposure N Constipation N Embolism N Deviated Septum N Tuberculosis N Myocardial Infarction N Asthma N Vertigo N Pulmonary Embolism N Chronic Ear Infections N Chicken Pox N Von Willebrands Disease N Lung Disease N Defects or Inherited Disease N Developmental or Behavioral Disorders N Difficulty Swallowing N Ovarian Cyst N Anesthesia Complications N Testosterone Deficiency N Meniere's disease N Head Injury/Concussion N Interstitial Cystitis N Congenital Anomalies N Hypoglycemia N Blood clot N Cellulitis N Endometriosis N Fracture N Liver Disease N Panic Disorder N Schizophrenia N Spina Bifida N Parkinson's Disease N STI N Angina N Thyroid Problems N GI Problems N ADD/ADHD N Anemia N Multiple Sclerosis N Lumbago N Psychiatric Illness N Diabetes N Congestive Heart Failure (CHF) N Hyperlipidemia N Syncope N Abuse/Domestic Violence N Attention Deficient Disorder N Ulcerative colitis N Aneurysm N Bronchitis N Heart Disease N Suicidal Ideation N Pre-Eclampsia N Hypertension N Pancreatitis N Other N Gout N Atrial Fibrillation N congenital heart disease N Kidney Stones N Erectile Dysfunction N Skin Lesions N Murmur N Alzheimer's Disease N Migraine Headaches N Tobacco Abuse N Muscle, Joint, or Bone Problems N Hemorrhoids N Vision or Eye Problems N Arthritis N Cancer N Crohn's Disease N Hypercholesterolemia N Headaches N Heart Problems N Ear or Hearing Problems N Kidney or Bladder Problems N Vitamin B12 Deficiency N AIDS/HIV N Mitral Valve Disorders N Hepatitis N Thyroid Cancer N Neuropathy N History of DVT N Herniated Disc N Autism Spectrum Disorder (ASD) N Thrombophilias N Breast Cancer N Hernia N Plantar Fasciitis N Hospital Admission Other Than N Hypothyroidism N Breast Problem N Vitamin D Deficiency N Bladder or Kidney Problems N Colorectal Cancer N Concussion N Allergies/Hayfever N Osteoarthritis N Disc Protrusion N Esophagitis N Abnormal PAP N Mental Illness N Ovarian Cancer N Bedwetting N Degenerative Disc Disease N Seizures/Epilepsy N Insomnia N Eczema N Diverticulitis N Dementia N Cerebrovascular Disease N Depression N Guillain-[place] N Sleep Apnea N Osteoporosis N Immunizations Vaccine Type Date Status Note Provider Nam e and Address Organization Details Recorded Time influenza, unspecified formulation 5 completed Hannah Jose null, [place] - [facility] 07/08/2025 08:23:48 Influenza, split virus, quadrivalent, preservative 3 completed Hannah Jose null, [place] - [facility] 08/02/2023 09:29:11 COVID-19, mRNA, LNP-S, PF, 100 mcg/0.5mL dose or 50 mcg/0.25mL dose 1 completed Earlene Pierre RN [address] [place] [address], [place], [address] [place] - [facility] 11/12/2020 09:20:38 Influenza, MDCK, quadrivalent, PF 0 completed Hannah Jose null, [place] - [facility] 08/02/2023 08:16:52 Influenza, MDCK, quadrivalent, PF 2 completed Hannah Jose null, [place] - [facility] 08/02/2023 08:16:53 MMR 9 completed Hannah Jose null, [place] - [facility] 08/02/2023 08:16:53 COVID-19, mRNA, LNP-S, PF, 100 mcg/0.5mL dose or 50 mcg/0.25mL dose 1 completed Hannah Jose null, [place] - [facility] 08/02/2023 08:16:53 COVID-19, mRNA, LNP-S, PF, 100 mcg/0.5mL dose or 50 mcg/0.25mL dose 1 completed Hannah Jose null, [place] - [facility] 08/02/2023 08:16:53 Tdap 4 completed Hannah [place] null, [place] [facility] 08/02/2023 08:16:53 Td (adult), 2 Lf tetanus toxoid, preservative free, adsorbed 3 completed Hannah Jose null, [place] - [facility] [...] ICD10 Code Diagnosis IMO Codes Diagnosis Note [id number] Leanne Chadwick PA-C [place] [address] [address] 07/08/2025 08:14:00 07/08/2025 08:53:50 Body mass index 20-24 - normal 404707803 Z68.23 [id number] Hyperlipid emia screening 150686799 Z13.220 [id number] checking today Endocrine/ metabolic screening 301267428 Z13.29 [id number] checking today General ex amination of patient 665993813 Z00.00 [id number] Health Concerns Section Related Observation LastModified by Organization Detai ls LastModified Time None Recorded Concern Status LastModified by Organization Details LastModified Time None Recorded Payers Encounter Date Sequence Insurance Name Policy Number Policy Elias Covered Member ID Elias Member ID Guarantor Name 07/08/2025 1 [employer] [id number] Mor Uribe [id number] AB [id number] Mor Uribe Notes Date Note Type Note Provider Name and Address Organization Details Recorded Time 07/08/2025 text/html pt presents to the office for lab work and check up for workPt is doing well today, has no complaints Leanne Chadwick PA-C [address], [place], [address], [place] - [facility] 07/08/2025 08:39:39
--- NOTE | 2025-09-24 19:35 | ED_ITS ---
Discharge Plan Disposition Patient Disposition: Home, Self-Care Referrals Follow up/Referrals: Provider,Referral, [Primary Care Provider, Medical] - See instructions Activity Restrictions/Add. Instructions Additional Instructions/Restrictions: No evidence of retained foreign body your symptoms today are consistent with a corneal abrasion. You have been prescribed Polytrim eyedrops please apply 1 drop to the affected eye 4 times a day for the next week. Return or follow-up with an office messenger if you have any worsening symptoms. Clinical Impressions Clinical Impression: Corneal abrasion Print Language Print Language: Macedonian Discharge ED Provider: Jen Harden General Adult HPI General Chief complaint: Eye Problems Stated complaint: AO 09/24/25 16:30 FB in left eye-wood Time Seen by Provider: 09/24/25 19:27 Mode of Arrival: Ambulatory Source of Information: Patient Description of Symptoms (Recalled from ER Triage Doc. by RN): Patient states that he was working and a piece of wood blew into his left eye when the heater kicked on. Patient denies any changes in vision. Eye reddened and tearing. History of Present Illness HPI narrative: 39-year-old male presents today with left eye injury. States he was sawing and a small piece of wood flew into his eye and is a retained foreign body sensation. Did irrigate his eye extensively and was able to to identify a piece of wood. Has had corneal abrasions in the past. Also has had welding injuries in the past. Vision is normal. Related Data Allergies Allergy/AdvReac Type Severity Reaction Status Date / Time No Known Allergies Allergy Verified 09/24/25 18:46 [facility] Disclaimer: The information contained in this section may have been updated after the patient was seen, as this information can be updated by other users. Social History (Updated 03/15/25 @ 22:08 by Sanjuanita Arredondo DO) Smoking Status: Never smoker alcohol intake: never current occupational status: employed Travel in the last 8 weeks?: None Have you lived/traveled outside [place] in past 30 days?: No Contact w/someone who lives/traveled outside [place] past 30 days?: No Exposure to someone with infectious disease in past 14 days?: No Do you have a fever (greater than 100.4 F or 38 C)?: No Have you tested positive for COVID-19?: No Exposed to someone with COVID-19 in past 14 days?: No Do you have a sore throat?: No Do you have a cough?: No Do you have any weakness?: No Do you have any diarrhea?: No Are you experiencing any unusual bleeding?: No Do you have any muscle aches/pain?: No Do you have any abdominal pain?: No Are you experiencing loss of taste or smell?: No ROS Obtained: Yes All systems reviewed & no additional complaints except as documented Physical Exam General General appearance: alert and in no apparent distress Eye Eye exam: Present PERRL, conjunctival redness and other (Globe appears normal vision normal-symptoms completely resolved with tetracaine. No evidence of retained foreign body with eversion of lids tetracaine fluorescein Luke lamp exam does not demonstrate an obvious large fluorescein uptake); Absent scleral icterus Respiratory Respiratory exam: Present normal lung sounds bilaterally Cardiovascular Cardiovascular exam: Present regular rate Neurological Exam Neurological exam: Present alert and oriented X3 Medical Decision Making Medical Records Screening: Per USPSTF and CDC recommendations, given the prevalence of disease in our region, it is our hospital?s policy to screen for HIV and viral Hepatitis for all patients aged 18 and over and those with ongoing risk factors. Sunil Inquiry Pt receiving controlled substance: No Vital Signs: 09/24/25 18:42 Temperature 97.7 F Temperature Source Oral Pulse Rate [Right Brachial] 74 Respiratory Rate 16 Blood Pressure [Right Arm] 138/81 Blood Pressure Mean [Right Arm] 100 Blood Pressure Source [Right Arm] Automatic Cuff Blood Pressure Position [Right Arm] Sitting 02 Sat by Pulse Oximetry 98 Oxygen Delivery Method Room Air Medical Decision Narrative: Patient with above history and physical aside from some mild conjunctival inflammation patient has a normal eye exam. He had complete resolution of his symptoms after tetracaine administration. No obvious foreign body noted on my exam his foreign body sensation was alleviated with tetracaine administration likely representing a superficial corneal or epithelial injury. No large defect but will treat this as a corneal abrasion. Polytrim drops given to the patient patient discharged improved stable condition ophthalmology follow-up recommended if he is not improving. Critical Care Critical Care Time Critical Care Time: No
[2025-09-24] MEDS: [UNRECOGNIZED DRUG - OTHER] OP (19:41)
[2025-09-24] MEDS: TETRACAINE 0.5% OPTH SOL 15ML OP (19:43)
[2025-09-24] MEDS: FLUORESCEIN SODIUM 1MG STRIP 1 MG OP (19:44)
[2025-09-24 19:45] VITALS: BP 138/81; PULSE 74; RESP 16; TEMP 36.5; O2SAT 98
== END 2025-09-24 19:49 | disposition home or self-care (01) ==
PROVIDERS: Emergency Provider Student in an Organized Health Care Education/Training Program
DX: S05.02XA Injury of conjunctiva and corneal abrasion without foreign body, left eye, initial encounter (principal); W44.8XXA Other foreign body entering into or through a natural orifice, initial encounter; Y99.0 Civilian activity done for income or pay
CPT/HCPCS: 99283